=== PATIENT | female | born 1935 | race Caucasian/White ===

== ENCOUNTER 2020-02-11 16:54 | Inpatient (IN) | payer MEDICARE, OTHER, SELFPAY ==
[2020-02-11] VITALS (19 sets, daily range): BP systolic 145–194; BP diastolic 74–108; PULSE 70–97; RESP 12–20; TEMP 36.1–36.9; O2SAT 90–99; BMI 26.2
--- NOTE | ~2020-02-11 | XR_ITS ---
EXAMINATION: XR ankle RT 2V DATE: 02/11/2020 18:43 INDICATION: Postreduction right ankle fracture TECHNIQUE: Anteroposterior and lateral views of the right ankle were obtained. COMPARISON: 02/11/2020 at 5:24 PM FINDINGS: Again seen is a trimalleolar fracture at the right ankle. The degree of lateral displacement and angu lation of the medial and lateral malleolar fragments as well as intervening talar dome with respect t o the more proximal tibia and fibula have decreased but remains significant. Minimal change in drapery maker ior displacement and angulation of the small posterior malleolar fragment. Normal alignment and relat ively preserved joint space within the right foot. No other fractures identified. Fiberglas splinting or casting material is present. IMPRESSION: 1. Right ankle trimalleolar fracture with improved but still significant lateral displacement and ang ulation of the talus and medial and lateral malleolar fragments post closed reduction and splinting v ersus casting. Reviewed, dictated and finalized at location H. ER HELPER IMPRESSION: 1. Right ankle trimalleolar fracture with improved but still significant latera l displacement and angulation of the talus and medial and lateral malleolar fra gments post closed reduction and splinting versus casting.
--- NOTE | ~2020-02-11 | XR_ITS ---
EXAMINATION: XR chest 1V portable DATE: 02/12/2020 06:29 INDICATION: Hypertension. Preop. TECHNIQUE: A single frontal view of the chest was obtained. COMPARISON: Chest 2 views 08/25/2018 FINDINGS: There is mild scarring in right midlung zone. No pleural effusion or pneumothorax. The hear t size is normal. There is a left chest wall pacer with leads in the right atrium and right ventricle . Surgical clips in the right upper quadrant are likely from cholecystectomy. There are changes of ve rtebroplasty in lumbar spine. IMPRESSION: 1. Mild scarring in right midlung zone. Reviewed, dictated and finalized at location A. NICAL SPECIALIST CYTOGENETICS
--- NOTE | ~2020-02-11 | XR_ITS ---
EXAMINATION: XR surgery orthopedic EXAM DATE: 02/12/2020 12:09 INDICATION: Right ankle closed reduction. TECHNIQUE: Fluoroscopy used during XR surgery orthopedic performed by Dr. Dedrick Zhou MD. The DAP for this procedure was 0.12 mGym2. FINDINGS: Previously seen right ankle fracture dislocation has been reduced on these frontal and lat eral images. Correlate with procedure note. IMPRESSION: Fluoroscopy used during XR surgery orthopedic. Reviewed, dictated and finalized at location A. DEVELOPER OPERATOR
--- NOTE | ~2020-02-11 | CT_ITS ---
EXAMINATION: CT ankle RT wo con DATE: 02/11/2020 20:39 INDICATION: Right ankle fracture. Osteopenia. TECHNIQUE: High resolution computed tomography (CT) of the right ankle was performed without intraven ous contrast. Additional sagittal and coronal reconstructions were performed. Automated exposure cont rol and iterative reconstruction technique were employed. The dose-length product was 536.28 mGy-cm. COMPARISON: Radiographs dated 02/11/2020 FINDINGS: Comminuted fractures of the distal right tibia and fibula. The fibular fracture is comprised of a dom inant oblique fracture plane which exits the medial cortex at the level of the tibiotalar joint line. The dominant lateral malleolar fracture fragment is displaced approximately 12 mm laterally and with 15 degrees lateral angulation. Smaller nodule posterior displacement, anterior angulation and approx imately 1 cm proximal migration. There is mild comminution along the fracture plane. There is a dominant transverse fracture plane across the medial malleolus level of the tibial plafond and with similar 12 mm of medial displacement. There is more significant comminution along the fract ure plane with multiple small fracture fragments. Finally there is an oblique coronally oriented fracture plane crosses the posterolateral corner of th e distal tibia. This fragment is displaced proximally a millimeter laterally with 1 cm proximal migra tion and posterior angulation of the main fragment. There is mild comminution along the inferolateral margin of the fracture a couple small bone fragments situated along the fracture gap at the articula r surface. The talar dome remains situated in relatively normal alignment between the main medial and lateral ma lleolar fragments similarly subluxed laterally with respect to the tibial plafond. 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 No other fractures identified. 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 Small Achilles and plantar calcaneal spurs. IMPRESSION: 1. Trimalleolar fracture of the right ankle with comminution along the fracture plane most severe at the medial malleolus. 2. Persistent approximately 12 mm lateral displacement of the talar dome and associated medial malleo lar fragments with some additional secondary angulation and proximal migration of some of the fragmen ts as detailed above. 3. 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 Reviewed, dictated and finalized at location H. ERETTE IMPRESSION: 1. Trimalleolar fracture of the right ankle with comminution along the fracture plane most severe at the medial malleolus. 2. Persistent approximately 12 mm lateral displacement of the talar dome and as sociated medial malleolar fragments with some additional secondary angulation a nd proximal migration of some of the fragments as detailed above. 3. 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
--- NOTE | ~2020-02-11 | XR_ITS ---
XR ankle RT 2V DATE: 02/11/2020 17:27 INDICATION: Fall. Pain and deformity of right TECHNIQUE: 3 views COMPARISON: None FINDINGS: There are laterally displaced fractures of the medial and lateral malleolar, with associate d lateral dislocation at the tibiotalar joint. Mild plantar calcaneal enthesopathy. Osteopenia IMPRESSION: Lateral dislocation with bimalleolar ankle fracture Reviewed, dictated and finalized at location B. H STRAIGHTENER
[2020-02-11] MEDS: SODIUM CHLORIDE 0.9% IV 1,000 ML 150 ML IV CONT (18:39)
[2020-02-11] MEDS: fentaNYL CITRATE INJ (*CRX) 100 MCG/2 ML VIAL 25 MCG IV PUSH (18:42)
[2020-02-11] MEDS: fentaNYL CITRATE INJ (*CRX) 100 MCG/2 ML VIAL (18:43)
--- NOTE | 2020-02-11 20:04 | ED.LOWEXIN ---
HPI - Extremity Injury (Lower) General Chief Complaint: Extremity Injury, Lower Stated Complaint: FALL R ANKLE DEFORMITY Time Seen by Provider: 02/11/20 17:03 Source: patient Mode of arrival: EMS Limitations: no limitations History of Present Illness HPI Narrative: 84-year-old female History of A. fib and high cholesterol Lives the [facility] with her She was bringing him a soft drink when she tripped and injured her right ankle No loss of consciousness did not hit her head does not have any neurologic symptoms just has a deformity of the ankle No numbness and no laceration complaint: ankle injury Type of Injury: eversion Associated symptoms: snap/pop sensation and swelling Related Data Home Medications Medication Instructions Recorded Confirmed Xarelto 15 mg PO QPM 02/25/19 10/15/19 budesonide 3 mg 3 mg PO DAILY 08/23/19 10/15/19 capsule,delayed,extended release magnesium 30 mg tablet 20 mg PO DAILY tablet 10/25/19 rivaroxaban 15 mg tablet 15 mg PO QPM 10/25/19 Allergies Allergy/AdvReac Type Severity Reaction Status Date / Time iodine Allergy Mild RASH Verified 02/11/20 17:05 alendronate sodium Allergy Unknown Rash Verified 02/11/20 17:05 celecoxib Allergy Unknown Unknown Verified 02/11/20 17:05 hydrocodone AdvReac Unknown nausea & Verified 02/11/20 17:05 vomiting Review of Systems Constitutional: Constitutional: Reports no additional constitutional complaints, Denies chills and Denies fever(s) Cardiovascular: Cardiovascular: Denies chest pain Respiratory: Respiratory: Denies cough and Denies dyspnea Gastrointestinal: Gastrointestinal: Denies diarrhea and Denies vomiting Musculoskeletal: Musculoskeletal: Denies back pain, Reports arthralgias and Reports joint swelling Neurologic: Denies confusion, Denies syncope, Denies headache(s), Denies focal weakness and Denies weakness [facility] Past Medical History Medical History (Updated 02/11/20 @ 20:15 by Sarabjit Muhammad MD) Atrial fibrillation Collagenous colitis Diarrhea GERD (gastroesophageal reflux disease) Hearing loss History of kidney stones Hyperlipidemia Hypertension Hypothyroidism Pacemaker (2013) Paroxysmal atrial fibrillation Weight loss Surgical History Surgical History History of back surgery (2016) Vertebroplasty in 2016. History of bunionectomy History of cholecystectomy History of hysterectomy Family History Family History Mother Diabetes mellitus Father Cerebrovascular accident Family history of coronary artery disease Social History Social History (Updated 12/18/19 @ 13:55 by Kassidy Parmar [facility]) Social History: The patient is to her 2nd of 23 years. They live in [place], spent the last 15 years in [place], [place]. Originally the patient is from [facility]. She denies alcohol, tobacco, and drug abuse. She designates her Randall and her son-in-law Wing as her surrogate decision makers and she wishes to be a full code. Smoking status: Never smoker Gender identity (if verbalized by the patient): Female Spiritual care concerns: No Exam Const: General: healthy appearing and alert Orientation/consciousness: patient oriented x3 HENMT: Head: normal to inspection, no contusions and no hematomas Mouth: Yes moist mucous membranes Eyes: Conjunctivae: conjunctivae normal EOM: EOMs intact bilaterally Neck: Neck: full ROM and nontender Resp: Effort & Inspection: normal respiratory effort Skin: General skin exam: normal color Neuro: General: patient oriented x3, moves all extremities and no focal motor deficits Speech: normal speech Extrem: Other: obvious fx/dislocation of R ankle Skin intact Nl pulses, nl sensation Psych: Affect: normal affect Course Vital Signs Vital signs: Vital Signs Temperature 36.9 C 01/26
[2020-02-11] MEDS: fentaNYL CITRATE INJ (*CRX) 100 MCG/2 ML VIAL 50 MCG IV PUSH (20:58)
--- NOTE | 2020-02-11 22:00 | PM.IMHP ---
H&P: HPI History of Present Illness Date/Time: 02/11/20 22:00 Chief complaint: Right ankle injury. Narrative: Anila Romo is an 84-year-old female with a medical history significant for paroxysmal atrial fibrillation on long-term anticoagulation, hypertension, hyperlipidemia, hypothyroidism, and lymphocytic colitis who presented to the emergency department earlier today via EMS for evaluation of a right ankle injury. Not long prior to arrival she was walking across the living room to bring her a soft drink when she rolled her foot skidded on the carpet, causing her right ankle to roll, and her to fall down. She was unable to get herself up due to immediate severe and throbbing pain in her right ankle. On arrival to the emergency department she was noted to have a right ankle deformity and was found to have a displaced right ankle trimalleolar fracture which has subsequently been reduced and splinted. At the time my evaluation she complains of pretty significant pain despite receiving fentanyl. Prior to reduction, she had some tingling in her toes but that has since improved. There was no head trauma or loss of consciousness in the fall, and she reports that it was strictly a mechanical fall. She denies lightheadedness, dizziness, vertigo, chest pain, pleuritic pain, palpitations, and shortness of breath. Review of Systems Review of Systems: Narrative: Twelve systems were reviewed with pertinent positives and negatives as per HPI. No fever, chills, or sweats. No recent cold or flu symptoms. She denies cough and shortness of breath. No nausea or vomiting. No significant diarrhea. She remains on budesonide after being diagnosed with lymphocytic colitis earlier this year. She denies dysuria. Except as documented, all other systems were reviewed and are negative. [facility] Past Medical History Medical History (Updated 02/11/20 @ 22:54 by Randi Louise PA-C) Anxiety Current use of senior care anticoagulation Rivaroxaban for stroke prophylaxis due to AFib. Gastroesophageal reflux disease Hearing loss History of kidney stones Hyperlipidemia Hypertension Hypothyroidism Lymphocytic colitis Patient of Dr. Aguiar. She is on budesonide q. HS. Paroxysmal atrial fibrillation Surgical History Surgical History (Updated 02/11/20 @ 21:56 by Randi Louise PA-C) History of bunionectomy History of cardiac pacemaker in situ History of cataract extraction History of cholecystectomy History of hysterectomy History of vertebroplasty (~2016) Family History Family History Mother Diabetes mellitus Father Cerebrovascular accident Family history of coronary artery disease Social History Social History (Updated 02/11/20 @ 21:58 by Randi Louise PA-C) Social History: The patient is to her 2nd of 27 years. They live in [place] but spent the last 15 years in [place], [place]. She is originally from [facility]. She denies alcohol, tobacco, and drug abuse. She designates her Randall and her son-in-law Wing as her surrogate decision makers and she wishes to be a full code. Smoking packs per day: 0.25 Smoking cigarettes per day: 5.0 Smoking status: Former smoker Tobacco type: cigarettes Alcohol intake: never Substance use: never Gender identity (if verbalized by the patient): Female Spiritual care concerns: No Meds Home Medications and Allergies Home Medications Medication Instructions Recorded Confirmed Type Xarelto 15 mg PO QPM 02/25/19 02/11/20 History esomeprazole magnesium 20 mg 20 mg PO DAILY #90 cap 08/13/19 02/11/20 Rx capsule,delayed release budesonide 3 mg 3 mg PO HS 08/23/19 02/11/20 History capsule,delayed,extended release ezetimibe 10 mg tablet 10 mg PO HS #90 tablet 10/03/19 02/11/20 Rx levothyroxine 88 mcg tablet 88 mcg PO DAILY #90 tablet 10/03/19 02/11/20 Wei
[2020-02-11] MEDS: LACTATED RINGERS 1,000 ML 6 ML IV CONT (22:41)
[2020-02-11] MEDS: MORPHINE SULFATE (*CRX) 2 MG/ML INJ IV PUSH (23:26)
[2020-02-11] MEDS: SERTRALINE HCL 50 MG TABLET PO (23:41)
[2020-02-11] MEDS: SIMVASTATIN 20 MG TABLET PO (23:41)
[2020-02-11] MEDS: BUDESONIDE 3 MG CAP.SR.24H PO (23:42)
[2020-02-11] MEDS: SOTALOL HCL 40 MG TABLET PO (23:42)
[2020-02-11] MEDS: EZETIMIBE 10 MG TABLET PO (23:42)
[2020-02-12] VITALS (18 sets, daily range): BP systolic 112–164; BP diastolic 44–84; PULSE 70–78; RESP 12–20; TEMP 35.9–36.8; O2SAT 94–100
--- NOTE | 2020-02-12 | ECG_ITS ---
Measurements Intervals [place] Rate: 70 P: 144 TX: 224 QRS: -33 QRSD: 141 T: 69 QT: 459 QTc: 497 Interpretive Statements ELECTRONIC ATRIAL PACEMAKER LEFT AXIS DEVIATION LEFT BUNDLE BRANCH BLOCK ABNORMAL ECG Electronically Signed On 02-12-2020 9:54:09 SKIN DIVER by Hasmukh Zavaleta D.O.
[2020-02-12] MEDS: fentaNYL CITRATE INJ (*CRX) 100 MCG/2 ML VIAL 50 MCG IV PUSH ×3 (03:57→08:43)
[2020-02-12 05:33] LABS: Hematocrit 32.8 % (37.0-47.0); Hemoglobin 10.5 g/dL (12.0-15.0); Mean Corpuscular Hemoglobin 30.9 pg (26-34); Mean Corpuscular Volume 96.5 fl (80-100); Mean Platelet Volume 9.5 fl (7.4-10.4); Platelet Count Result 180 k/mm3 (150-375); Red Cell Distribution Width 13.3 % (11.5-14.5); White Blood Count 5.8 K/mm3 (4.5-10.0)
[2020-02-12] MEDS: LEVOTHYROXINE SODIUM 88 MCG TABLET PO (05:40)
[2020-02-12 05:50] LABS: Alanine Aminotransferase 72 U/L (4-35); Albumin Level 3.5 g/dL (3.5-5.1); Alkaline Phosphatase 71 U/L (38-126); Anion Gap 5 mmol/L (8-16); Aspartate Amino Transferase 125 U/L (14-36); Bilirubin,Total 0.7 mg/dL (0.2-1.3); Blood Urea Nitrogen 15 mg/dL (7-17); Carbon Dioxide 28 mmol/L (22-30); Chloride 106 mmol/L (98-107); Estimated CRCL calculation 44 ml/min; Estimated Glomerular Filt Rate > 60; Glucose 105 mg/dL (65-105); INR 1.2; Prothrombin Time 15.6 Seconds (11.1-14.7); Sodium 139 mmol/L (137-145)
[2020-02-12 05:51] LABS: Partial Thromboplastin Time 27.6 SECONDS (22.3-36.8)
--- NOTE | 2020-02-12 08:48 | PM.CNOR ---
Assessment and Plan Assessment and plan (1) Displaced trimalleolar fracture of right ankle: Qualifiers: Encounter type: initial encounter Fracture type: closed Qualified Code(s): S82.851A - Displaced trimalleolar fracture of right lower leg, initial encounter for closed fracture Code(s): S82.851A - Displaced trimalleolar fracture of right lower leg, initial encounter for closed fracture Status: Acute Assessment and Plan: History, exam, radiographs reviewed with the patient. Both pre and post reduction films reviewed. Post reduction films of the right ankle reveal a right ankle trimalleolar fracture with improved but still significant lateral displacement and angulation of the talus and medial and lateral malleolar fragments. the patient is currently on Xarelto. Her last dose of Xarelto was given on February 09 in the evening. The patient has been NPO since admission to the hospital. After review of radiographs of my attending physician, Dr. Zhou, recommended closed reduction of the right ankle with possible ORIF pending skin assessment/soft tissue swelling. Risks of surgery including but not limited to neurovascular damage, wound complications, blood clot, pulmonary embolus, stroke, myocardial infarction, anesthetic risks up to and including were reviewed. Continued pain and possible dysfunction were explained. No guarantees were offered. The patient understands and wishes to proceed. Plan: Closed reduction of right ankle fracture with possible ORIF by Dr. Zhou. Obtain consent. Remain NPO in the interim. Continue pain control. Ice. Elevate the RLE. Hold Xarelto until further notice. History of Present Illness HPI Consult date: 02/12/20 Requesting physician: Sarabjit Muhammad MD Consult reason: fracture (Right Ankle Fracture ) Chief complaint: Right ankle injury. Narrative: 84-year-old female admitted to [facility] yesterday status post right ankle fracture. History, exam and radiographs reviewed with the patient today. She reports having a fall after walking the halls at [facility] were she lives with her . Her is 89. Her then asked her for a soda and as she went to hand have the soda her shoes must have got stuck on the carpet causing her to fall to the ground. She denies hitting her head. She denies loss of consciousness. She denies syncopal event prior to fall. Fall appears to be mechanical in nature. Radiographs of the right ankle upon admission to the emergency revealed a lateral dislocation with bimalleolar ankle fracture. Reduction of ankle fracture attempted by emergency room physician. Post reduction films reveal a right ankle trimalleolar fracture with improved but still significant lateral displacement and angulation of the talus and medial and lateral malleolar fragments. the patient was splinted and then admitted to the hospital for likely surgical intervention. Orthopedic consult requested by emergency room physician. Review of Systems Constitutional: Constitutional: Reports no additional constitutional complaints, Denies chills, Denies fatigue, Denies fever(s), Denies headache(s) and Denies weakness Eyes: Eyes: Denies change in vision ENT: Reports Normal hearing present and Denies headache(s) Cardiovascular: Cardiovascular: Denies chest pain and Denies dyspnea Respiratory: Respiratory: Denies cough, Denies dyspnea and Denies wheezing Gastrointestinal: Gastrointestinal: Denies constipation, Denies diarrhea, Denies nausea and Denies vomiting Genitourinary: Genitourinary: Denies hematuria, Denies dysuria and Denies urinary urgency Musculoskeletal: Musculoskeletal: Reports as per HPI, Denies numbness and Denies tingling Integumentary/Breasts: Skin/Breast: Reports as per HPI Neurologic: Reports as per HPI, Reports Normal hearing present, Denies headache(s), Denies numbness, Denies tingling and Denies weakness Psychiatric: Psychiatric:
[2020-02-12] MEDS: SOTALOL HCL 40 MG TABLET PO ×2 (09:00→20:21)
--- NOTE | 2020-02-12 10:25 | PC.NURSE ---
pt to surgery via bed, report faxed to OR and spoke with ASHLEY Childers
--- NOTE | 2020-02-12 10:26 | PCPTNOTE ---
Attempted PT evaluation this AM. Pt currently in surgery. Will attempt evaluation after surgery once weight bearing status indicated.
[2020-02-12] MEDS: LACTATED RINGERS 1,000 ML 30 ML IV CONT (10:40)
--- NOTE | 2020-02-12 10:50 | WPDANESEPPF ---
Anes - Initial Pre Proc Eval Procedure: Operation Date: 02/12/20 10:15 Proposed Procedures p Closed Reduction, Possible Open Reduction Internal Fixation Right Ankle - Dedrick Zhou MD Date/Time: 02/12/20 10:50 Surgeon: Chikis Blank MD Pre Op Diagnosis: Right ankle injury. Patient Data Age: 84 Gender: F Height: 1.63 m Weight: 69.2 kg Last Vital Signs Temp 36.1 C L 02/11/20 21:40 Pulse 71 02/12/20 09:04 Resp 18 02/12/20 09:04 BP 122/72 02/12/20 09:04 Pulse Ox 98 02/12/20 09:04 Allergies Allergy/AdvReac Type Severity Reaction Status Date / Time iodine Allergy Mild RASH Verified 02/11/20 17:05 alendronate sodium Allergy Unknown Rash Verified 02/11/20 17:05 celecoxib Allergy Unknown Unknown Verified 02/11/20 17:05 hydrocodone AdvReac Unknown nausea & Verified 02/11/20 17:05 vomiting Home Medications Medication Instructions Recorded Confirmed Type Xarelto 15 mg PO QPM 02/25/19 02/11/20 History esomeprazole magnesium 20 mg 20 mg PO DAILY #90 cap 08/13/19 02/11/20 Rx capsule,delayed release budesonide 3 mg 3 mg PO HS 08/23/19 02/11/20 History capsule,delayed,extended release ezetimibe 10 mg tablet 10 mg PO HS #90 tablet 10/03/19 02/11/20 Rx levothyroxine 88 mcg tablet 88 mcg PO DAILY #90 tablet 10/03/19 02/11/20 Rx magnesium 30 mg tablet 20 mg PO DAILY tablet 10/25/19 02/11/20 History Lacto.acidophilus-Bif.animalis 1 cap PO DAILY 02/11/20 02/11/20 History [Daily Probiotic] cetirizine 10 mg PO DAILY 02/11/20 02/11/20 History cholecalciferol (vitamin D3) 3,000 unit PO DAILY 02/11/20 02/11/20 History cranberry extract [cranberry] 250 mg PO DAILY 02/11/20 02/11/20 History melatonin 5 mg PO HS PRN 02/11/20 02/11/20 History sertraline [Zoloft] 50 mg PO HS 02/11/20 02/11/20 History simvastatin [Zocor] 20 mg PO HS 02/11/20 02/11/20 History sotalol 40 mg PO Q12H 02/11/20 02/11/20 History Laboratory Tests 02/12/20 02/12/20 02/12/20 04:57 04:57 04:57 WBC 5.8 K/mm3 K/mm3 (4.5-10.0) RBC 3.40 M/mm3 L M/mm3 (4.2-5.4) Hgb 10.5 g/dL L g/dL (12.0-15.0) Hct 32.8 % L % (37.0-47.0) MCV 96.5 fl fl (80-100) MCH 30.9 pg pg (26-34) MCHC 32.0 g/dl g/dl (32-36) RDW 13.3 % % (11.5-14.5) Plt Count 180 k/mm3 k/mm3 (150-375) MPV 9.5 fl fl (7.4-10.4) PT 15.6 Seconds H Seconds (11.1-14.7) INR 1.2 APTT 27.6 SECONDS SECONDS (22.3-36.8) Sodium 139 mmol/L mmol/L (137-145) Potassium 4.0 mmol/L mmol/L (3.4-5.0) Chloride 106 mmol/L mmol/L (98-107) Carbon Dioxide 28 mmol/L mmol/L (22-30) Anion Gap 5 mmol/L L mmol/L (8-16) BUN 15 mg/dL D mg/dL (7-17) Creatinine 0.70 mg/dL mg/dL (0.7-1.0) Estim Creat Clear Calc 44 ml/min ml/min Estimated GFR > 60 (59 - ) Glucose 105 mg/dL mg/dL (65-105) Calcium 9.0 mg/dL mg/dL (8.4-10.2) Magnesium 2.0 mg/dL mg/dL (1.6-2.3) Total Bilirubin 0.7 mg/dL mg/dL (0.2-1.3) AST 125 U/L H U/L (14-36) ALT 72 U/L H U/L (4-35) Alkaline Phosphatase 71 U/L U/L (38-126) Total Protein 7.0 g/dL g/dL (6.3-8.2) Albumin 3.5 g/dL g/dL (3.5-5.1) TSH (Reflex) 02/12/20 04:57 WBC RBC Hgb Hct MCV MCH MCHC RDW Plt Count MPV PT INR APTT Sodium Potassium Chloride Carbon Dioxide Anion Gap BUN Creatinine Estim Creat Clear Calc Estimated GFR Glucose Calcium Magnesium Total Bilirubin AST ALT Alkaline Phosphatase Total Protein Albumin TSH (Reflex) 1.780 uIU/mL uIU/mL (0.465-4.68) Patient hx anesthesia problems:
--- NOTE | 2020-02-12 11:17 | WPDHPUPDATE1 ---
History and Physical Update Update Date/Time: 02/12/20 11:17 History and Physical has been reviewed, including an updated exam of the patient. There are NO changes in the patient's condition. Risks, benefits, and alternatives have been discussed and questions answered. Patient agrees to proceed with procedure.
--- NOTE | 2020-02-12 12:16 | PM.IMPN ---
Progress Note: A&P Assessment and Plan (1) Displaced trimalleolar fracture of right ankle: Qualifiers: Encounter type: initial encounter Fracture type: closed Qualified Code(s): S82.851A - Displaced trimalleolar fracture of right lower leg, initial encounter for closed fracture Code(s): S82.851A - Displaced trimalleolar fracture of right lower leg, initial encounter for closed fracture Status: Acute Assessment and Plan: Pt going to OR today for ankle fracture repair (2) Hypertension: Code(s): I10 - Essential (primary) hypertension Status: Acute Assessment and Plan: Continue to watch in hospital, Bp is 164/65. Slightly high pt is on fluids continue to watch. Pt is medical stable for surgery today. (3) Paroxysmal atrial fibrillation: Code(s): I48.0 - Paroxysmal atrial fibrillation Status: Acute Assessment and Plan: On sotalol (4) Current use of fpc anticoagulation: Code(s): Z79.01 - shelter (current) use of anticoagulants Status: Acute Assessment and Plan: Xarelto on hold (5) Hypothyroidism: Code(s): E03.9 - Hypothyroidism, unspecified Status: Acute Assessment and Plan: On levothyroxine (6) Gastroesophageal reflux disease: Code(s): K21.9 - Gastro-esophageal reflux disease without esophagitis Status: Inactive Assessment and Plan: On omeprazole Subjective Date/time seen: 02/12/20 12:16 Interval history: Clarissa is an 84-year-old female with a medical history significant for paroxysmal atrial fibrillation on long-term anticoagulation, hypertension, hyperlipidemia, hypothyroidism, and lymphocytic colitis who presented to the emergency department earlier today via EMS for evaluation of a right ankle injury. Pt fell onto floor accidental fell on carpet, pt sustained displaced trimalleolar fracture of right lower leg. Pt is going to OR today under DR Zhou. Review of Systems Review of Systems: All systems reviewed & are unremarkable except as noted in HPI and below Exam Narrative: Exam Narrative: General: Well-developed elderly female Respiratory: Lungs are clear to auscultation bilaterally. Cardiovascular: Regular rate and rhythm with S1-S2. Gastrointestinal: Abdomen is soft, nontender, and nondistended with positive bowel sounds. Skin: Warm and dry. . Extremities: No cyanosis, clubbing, or edema. Musculoskeletal: Right lower leg is in a splint. pulses are present sensation intact in R ankle and foot Neurological: Alert. No gross focal deficits to casual conversation. Psychiatric: Normal mood and affect. Objective Data Vital Signs Vital Signs: Vital Signs - 24 hr 02/11/20 16:57 02/11/20 17:12 02/11/20 17:15 Temperature 36.9 C Pulse Rate 70 70 70 Respiratory Rate 18 12 13 Blood Pressure 145/82 H Pulse Oximetry 98 98 97 02/11/20 17:16 02/11/20 17:30 02/11/20 17:31 Temperature Pulse Rate 70 70 70 Respiratory Rate 19 15 17 Blood Pressure 167/78 H 153/74 H Pulse Oximetry 96 98 97 02/11/20 17:45 02/11/20 17:46 02/11/20 18:00 Temperature Pulse Rate 70 70 70 Respiratory Rate 15 17 16 Blood Pressure 146/83 H Pulse Oximetry 99 99 98 02/11/20 18:01 02/11/20 18:09 02/11/20 18:11 Temperature Pulse Rate 70 70 70 Respiratory Rate 13 13 14 Blood Pressure 167/78 H 179/81 H 177/81 H Pulse Oximetry 97 98 97 02/11/20 18:15 02/11/20 18:16 02/11/20 18:21 Temperature Pulse Rate 70 70 83 Respiratory Rate 14 17 13 Blood Pressure 182/81 H 194/108 H Pulse Oximetry 99 98 93 02/11/20 18:43 02/11/20 19:16 02/11/20 21:40 Temperature 36.1 C L Pulse Rate 70 74 97 Respiratory Rate 20 12 20 Blood Pressure 184/90 H 190/86 H 182/75 H Pulse Oximetry 98 94 90 02/11/20 23:42 02/12/20 09:00 02/12/20 09:04 Temperature Pulse Rate 78 71 71 Respiratory Rate 18 Blood Pressure 122/72 Pulse Oximetry 98 02/12/20 10:40 Temp
--- NOTE | 2020-02-12 13:36 | PC.NURSE ---
pt returned from OR, resting comfortably, minimal pain, plan of care discussed
--- NOTE | 2020-02-12 13:59 | PM.PROC ---
Procedure Note - Detailed Date of procedure: 02/12/20 Pre-op diagnosis: Right ankle injury. RIGHT TRIMALLEOLAR ANKLE FRACTURE DISLOCATION. Post-op diagnosis: same Procedure performed: CLOSED REDUCTION, SPLINTING RIGHT ANKLE Description of procedure: THE PATIENT WAS TAKEN TO THE OPERATING ROOM AND INTUBATED UNDER ANESTHESIA. THE SPLINT WAS REMOVED FROM THE RIGHT ANKLE. LARGE HEMATOMA AND FRACTURE BLISTERING WAS OBSERVED ON THE MEDIAL SIDE OF THE ANKLE. THE LATERAL SIDE HAD HEMATOMA AND SWELLING BUT NO BLISTERING. IT WAS DETERMINED THAT ORIF WOULD NOT BE APPROPRIATE DUE TO SOFT TISSUE SWELLING AND THE RISK OF WOUND COMPLICATIONS. XEROFORM DRESSING WAS PLACED ON THE MEDIAL SIDE OF THE ANKLE. USING FLUROSCOPY, THE FRACTURE WAS REDUCED AND SECURED WITH A NELLY CORBIN SPLINT. POST REDUCTION FILMS SHOWED GOOD POSITION OF FRACTURE FRAGMENTS AND REDUCTION OF ANKLE JOINT. THE PATIENT WAS EXTUBATED AND SENT TO RECOVERY ROOM Anesthesia: GLMA Surgeon: Dedrick Zhou MD Complications: No immediate complications Condition: stable Disposition: PACU
[2020-02-12] MEDS: PANTOPRAZOLE 40 MG TABLET PO (15:39)
[2020-02-12] MEDS: HYDROcodone/acetaminophen (*CRX) 7.5-325 MG TABLET 1 TAB PO ×2 (15:39→20:19)
[2020-02-12] MEDS: LORATADINE 10 MG TABLET PO (15:40)
[2020-02-12] MEDS: CHOLECALCIFEROL 1,000 UNITS TABLET 3000 UNITS PO (15:40)
[2020-02-12] MEDS: SIMVASTATIN 20 MG TABLET PO (20:20)
[2020-02-12] MEDS: EZETIMIBE 10 MG TABLET PO (20:20)
[2020-02-12] MEDS: BUDESONIDE 3 MG CAP.SR.24H PO (20:20)
[2020-02-12] MEDS: SERTRALINE HCL 50 MG TABLET PO (20:20)
[2020-02-13] VITALS (8 sets, daily range): BP systolic 106–140; BP diastolic 54–69; PULSE 70–89; RESP 16–18; TEMP 36.1–36.8; O2SAT 93–95
[2020-02-13 05:38] LABS: Hematocrit 31.3 % (37.0-47.0); Hemoglobin 9.9 g/dL (12.0-15.0); Mean Corpuscular HGB Conc 31.6 g/dl (32-36); Mean Corpuscular Hemoglobin 31.1 pg (26-34); Mean Corpuscular Volume 98.4 fl (80-100); Mean Platelet Volume 9.5 fl (7.4-10.4); Platelet Count Result 165 k/mm3 (150-375); Red Blood Count 3.18 M/mm3 (4.2-5.4); Red Cell Distribution Width 13.4 % (11.5-14.5); White Blood Count 5.4 K/mm3 (4.5-10.0)
[2020-02-13 05:58] LABS: Anion Gap 4 mmol/L (8-16); Blood Urea Nitrogen 12 mg/dL (7-17); Calcium 9.2 mg/dL (8.4-10.2); Carbon Dioxide 32 mmol/L (22-30); Chloride 105 mmol/L (98-107); Estimated CRCL calculation 39 ml/min; Estimated Glomerular Filt Rate > 60; Glucose 110 mg/dL (65-105); Potassium 4.3 mmol/L (3.4-5.0); Sodium 141 mmol/L (137-145)
[2020-02-13] MEDS: LEVOTHYROXINE SODIUM 88 MCG TABLET PO (06:57)
--- NOTE | 2020-02-13 08:30 | WPDANESPN ---
Anes - Prog Note Post-Op Date/Time: 02/13/20 08:30 Cardiovascular status: normal Respiratory status: normal Airway patency: baseline Mental status: baseline Post-Op hydration status: normal Vital Signs: Last Vital Signs Temp 36.1 C L 02/13/20 05:50 Pulse 75 02/13/20 05:50 Resp 16 02/13/20 05:50 BP 136/69 02/13/20 05:50 Pulse Ox 93 02/13/20 05:50 Pain Score (VAS): 0 I/O: Intake & Output 02/12/20 02/13/20 02/13/20 23:59 07:59 15:59 Intake Total 450 250 Output Total 1050 700 Balance -600 -450 Laboratory Tests 02/13/20 05:16 02/13/20 05:16 02/13/20 02/13/20 02/13/20 03:58 05:16 05:16 WBC 5.4 RBC 3.18 L Hgb 9.9 L Hct 31.3 L MCV 98.4 MCH 31.1 MCHC 31.6 L RDW 13.4 Plt Count 165 MPV 9.5 Sodium 141 Potassium 4.3 Chloride 105 Carbon Dioxide 32 H Anion Gap 4 L BUN 12 Creatinine 0.80 Estim Creat Clear Calc 39 Estimated GFR > 60 Glucose 110 H Calcium 9.2 SARS-CoV-2 RNA (RT-PCR) Pending Post-procedural complaints: none Patient Feedback: Patient satisfied with anesthetic care.
[2020-02-13] MEDS: ACETAMINOPHEN 325 MG TABLET 650 MG PO (08:59)
[2020-02-13] MEDS: SOTALOL HCL 40 MG TABLET PO ×2 (09:00→20:37)
[2020-02-13] MEDS: PANTOPRAZOLE 40 MG TABLET PO (09:00)
[2020-02-13] MEDS: DOCUSATE SODIUM 100 MG CAPSULE PO ×2 (09:00→16:26)
[2020-02-13] MEDS: CHOLECALCIFEROL 1,000 UNITS TABLET 3000 UNITS PO (09:00)
[2020-02-13] MEDS: LORATADINE 10 MG TABLET PO (09:00)
[2020-02-13] MEDS: ENOXAPARIN 40 MG/0.4 ML SYRINGE SUB-Q (09:00)
[2020-02-13] MEDS: HYDROcodone/acetaminophen (*CRX) 7.5-325 MG TABLET 1 TAB PO ×3 (10:04→21:42)
--- NOTE | 2020-02-13 11:10 | PM.IMPN ---
Progress Note: A&P Assessment and Plan (1) Displaced trimalleolar fracture of right ankle: Qualifiers: Encounter type: initial encounter Fracture type: closed Qualified Code(s): S82.851A - Displaced trimalleolar fracture of right lower leg, initial encounter for closed fracture Code(s): S82.851A - Displaced trimalleolar fracture of right lower leg, initial encounter for closed fracture Status: Acute Assessment and Plan: Pt fell onto floor accidental fall on carpet, pt sustained displaced trimalleolar fracture of right lower leg. Unfortunately pt could not have surgery due to swelling/ soft tissue swelling of her right ankle. Pt will need rpt xray in one weeks time, pt is non weight bearing, cannot go back to [facility], [facility] consult made. Pt to continue with PT and pain control. RICE techniques. (2) Hypertension: Code(s): I10 - Essential (primary) hypertension Status: Acute Assessment and Plan: Continue to watch in hospital, Bp is 123/54 (3) Paroxysmal atrial fibrillation: Code(s): I48.0 - Paroxysmal atrial fibrillation Status: Acute Assessment and Plan: On sotalol (4) Current use of fdc anticoagulation: Code(s): Z79.01 - ocean transportation intermediary (current) use of anticoagulants Status: Acute Assessment and Plan: Xarelto on hold (5) Hypothyroidism: Code(s): E03.9 - Hypothyroidism, unspecified Status: Acute Assessment and Plan: On levothyroxine (6) Gastroesophageal reflux disease: Code(s): K21.9 - Gastro-esophageal reflux disease without esophagitis Status: Inactive Assessment and Plan: On omeprazole Subjective Date/time seen: 02/13/20 11:10 Interval history: Clarissa is an 84-year-old female with a medical history significant for paroxysmal atrial fibrillation on long-term anticoagulation, hypertension, hyperlipidemia, hypothyroidism, and lymphocytic colitis who presented to the emergency department earlier today via EMS for evaluation of a right ankle injury. Pt fell onto floor accidental fall on carpet, pt sustained displaced trimalleolar fracture of right lower leg. Unfortunately pt could not have surgery due to swelling/ soft tissue sweling of her right ankle. Review of Systems Review of Systems: All systems reviewed & are unremarkable except as noted in HPI and below Exam Narrative: Exam Narrative: General: Well-developed elderly female Respiratory: Lungs are clear to auscultation bilaterally. Cardiovascular: Regular rate and rhythm with S1-S2. Gastrointestinal: Abdomen is soft, nontender, and nondistended with positive bowel sounds. Skin: Warm and dry. Extremities: No cyanosis, clubbing, or edema. Musculoskeletal: Soft cast and zeynep wrap of R leg. pulses are present sensation intact in R ankle and foot Neurological: Alert. No gross focal deficits to casual conversation. Psychiatric: Normal mood and affect. Objective Data Vital Signs Vital Signs: Vital Signs - 24 hr 02/12/20 12:02 02/12/20 12:15 02/12/20 12:30 Temperature 36.8 C Pulse Rate 70 70 70 Respiratory Rate 12 12 20 Blood Pressure 139/64 153/72 H 148/84 H Pulse Oximetry 100 100 95 02/12/20 12:45 02/12/20 13:00 02/12/20 13:15 Temperature Pulse Rate 74 70 74 Respiratory Rate 12 16 14 Blood Pressure 149/71 H 149/58 H 149/58 H Pulse Oximetry 94 95 94 02/12/20 13:25 02/12/20 13:29 02/12/20 13:44 Temperature 35.9 C L 36.4 C L Pulse Rate 71 70 70 Respiratory Rate 12 16 16 Blood Pressure 155/70 H 141/71 H 141/69 H Pulse Oximetry 94 94 95 02/12/20 14:14 02/12/20 15:14 02/12/20 18:00 Temperature 36.2 C L 36.6 C 36.6 C Pulse Rate 78 75 70 Respiratory Rate 16 16 16 Blood Pressure 119/82 112/49 L 113/44 L Pulse Oximetry 94 96 94 02/12/20 20:21 02/12/20 21:27 02/12/20 23:14 Temperature 36.6 C 36.1 C L Pulse Rate 72 74 72 Respiratory Rate 16 16 Blood Pressure 125/50 L 133/55 L Pulse Oxi
--- NOTE | 2020-02-13 11:25 | PCPTNOTE ---
Attempted second therapy session. Pt refused, stating I just need some rest. I just took a pill for my pain and am feeling woozy. I just need rest and people keep coming in. Maybe later on I will feel more up to it. Informed Pt the importance of therapy, Pt agreed and stated Maybe later on. Will attempt again.
[2020-02-13 14:03] LABS: SARS-CoV-2 RNA PCR Negative
--- NOTE | 2020-02-13 14:58 | PM.PNORT ---
Progress Note: A&P Additional Plan POST OP CLOSED REDUCTION FOR DISPLACED LEFT TRIMALLEOLAR ANKLE FRACTURE WITH SIGNIFICANT SOFT TISSUE INJURY WITH BLISTERING AND HEMATOMA. SHE WILL REMAIN SPLINTED FOR AT LEAST 7 MORE DAYS AT WHICH TIME A SECOND LOOK WOULD BE PREFORMED TO LOOK AT THE TISSUE FOR DETERMINATION OF PROCEDURE. WE DISCUSSED THE RISK OF INFECTION AND SKIN DEHISCENCE IF SURGERY IS DONE TOO SOON.WILL FOLLOW Time Spent With Patient Time with patient: less than 15 minutes Subjective Subjective Date/Time Seen: 02/13/20 14:58 Post Op day: 1 Principal diagnosis: POD 1 DOING WELL. PAIN CONTROLLED Interval history: POD Exam Extrem: Other: VSS AFEBRILE LEFT LEG IN WELL MOLDED SPLINT, NV INTACT CALF SOFT Objective Data Vital Signs Vital Signs: Vital Signs - 24 hr 02/12/20 15:14 02/12/20 18:00 02/12/20 20:21 Temperature 36.6 C 36.6 C Pulse Rate 75 70 72 Respiratory Rate 16 16 Blood Pressure 112/49 L 113/44 L Pulse Oximetry 96 94 02/12/20 21:27 02/12/20 23:14 02/13/20 05:50 Temperature 36.6 C 36.1 C L 36.1 C L Pulse Rate 74 72 75 Respiratory Rate 16 16 16 Blood Pressure 125/50 L 133/55 L 136/69 Pulse Oximetry 95 94 93 02/13/20 09:00 02/13/20 10:00 02/13/20 13:08 Temperature 36.8 C 36.4 C Pulse Rate 89 72 70 Respiratory Rate 18 16 Blood Pressure 123/54 L 106/54 L Pulse Oximetry 95 94 Intake/Output Intake/Output: Intake & Output 02/10/20 02/11/20 02/12/20 02/13/20 23:59 23:59 23:59 23:59 Intake Total 1100 730 Output Total 2650 700 Balance -1550 30 Meds/Results Medications: Active Medications Generic Name Dose Route Start Last Admin Trade Name Freq PRN Reason Stop Dose Admin Acetaminophen 650 mg 02/12/20 13:29 02/13/20 08:59 Acetaminophen 325 Mg Tablet PO 650 mg Q6H PRN Administration Pain Rated 1-3 Hydrocodone Bitart/Acetaminophen 1 tab 02/12/20 13:29 02/13/20 10:04 Hydrocodone/Acetaminophen (*Crx) 7.5-325 Mg Tablet PO 1 tab Q3H PRN Administration Pain Rated 4-6 Budesonide 3 mg 02/11/20 23:00 02/12/20 20:20 Budesonide 3 Mg Cap.Sr.24h PO 3 mg HS ISHMAEL Administration Diazepam 5 mg 02/12/20 13:29 Diazepam (*Crx) 5 Mg Tablet PO Q8H PRN Muscle Spasm Docusate Sodium 100 mg 02/12/20 17:00 02/13/20 09:00 Docusate Sodium 100 Mg Capsule PO 100 mg BID ISHMAEL Administration Ezetimibe 10 mg 02/11/20 23:05 02/12/20 20:20 Ezetimibe 10 Mg Tablet PO 10 mg HS [facility] Administration Enoxaparin Sodium 40 mg 02/13/20 09:00 02/13/20 09:00 Enoxaparin 40 Mg/0.4 Ml Syringe SUB-Q 40 mg DAILY ISHMAEL Administration Levothyroxine Sodium 88 mcg 02/12/20 06:30 02/13/20 06:57 Levothyroxine Sodium 88 Mcg Tablet PO 88 mcg DAILY@0630 ISHMAEL Administration Loratadine 10 mg 02/12/20 09:00 02/13/20 09:00 Loratadine 10 Mg Tablet PO 10 mg QAM [facility] Administration Magnesium Hydroxide 30 ml 02/12/20 13:29 Magnesium Hydroxide Susp 30 Ml Udc PO BID PRN Constipation Melatonin 5 mg 02/11/20 22:47 Melatonin 5 Mg Tablet PO HS PRN Insomnia Morphine Sulfate 3 mg 02/12/20 13:29 Morphine Sulfate (*Crx) 4 Mg/Ml Inj IV PUSH Q3H PRN Pain Rated 7-10 Non-Formulary Medication 1 cap 02/12/20 09:00 Lacto.Acidophilus-Bif.Animalis [Daily Probiotic] PO 03/13/20 09:01 DAILY [facility] Non-Formulary Medication 20 mg 02/12/20 09:00 Magnesium PO 03/13/20 09:01 DAILY [facility] Ondansetron HCl 4 mg 02/11/20 19:57 Ondansetron Inj 4 Mg/2 Ml Vial IV PUSH Q4H PRN Nausea Pantoprazole Sodium 40 mg 02/12/20 09:00 02/13/20 09:00 Pantoprazole 40 Mg Tablet PO 40 mg QAM ISHMAEL Administration Sertraline HCl 50 mg 02/11/20 23:05 02/12/20 20:20 Sertraline Hcl 50 Mg Tablet PO 50 mg HS ISHMAEL Administration Simvastatin 20 mg 02/11/20 23:05 02/12/20 20:20 Simvastatin 20 Mg Tablet PO 20 mg HS ISHMAEL Administration Sotalol HCl 40 mg 02/11/20 22
[2020-02-13] MEDS: SIMVASTATIN 20 MG TABLET PO (20:36)
[2020-02-13] MEDS: EZETIMIBE 10 MG TABLET PO (20:37)
[2020-02-13] MEDS: SERTRALINE HCL 50 MG TABLET PO (20:37)
[2020-02-13] MEDS: BUDESONIDE 3 MG CAP.SR.24H PO (20:37)
[2020-02-14] VITALS (10 sets, daily range): BP systolic 119–153; BP diastolic 48–73; PULSE 70–92; RESP 14–18; TEMP 36–36.8; O2SAT 92–98
[2020-02-14] MEDS: LEVOTHYROXINE SODIUM 88 MCG TABLET PO (05:47)
[2020-02-14] MEDS: HYDROcodone/acetaminophen (*CRX) 7.5-325 MG TABLET 1 TAB PO ×3 (09:06→20:29)
[2020-02-14] MEDS: ENOXAPARIN 40 MG/0.4 ML SYRINGE SUB-Q (09:07)
[2020-02-14] MEDS: LORATADINE 10 MG TABLET PO (09:07)
[2020-02-14] MEDS: SOTALOL HCL 40 MG TABLET PO ×2 (09:07→20:29)
[2020-02-14] MEDS: DOCUSATE SODIUM 100 MG CAPSULE PO ×2 (09:07→17:28)
[2020-02-14] MEDS: CHOLECALCIFEROL 1,000 UNITS TABLET 3000 UNITS PO (09:07)
[2020-02-14] MEDS: PANTOPRAZOLE 40 MG TABLET PO (09:07)
--- NOTE | 2020-02-14 12:20 | PM.PNORT ---
Progress Note: A&P Assessment and Plan (1) Displaced trimalleolar fracture of right ankle: Qualifiers: Encounter type: initial encounter Fracture type: closed Qualified Code(s): S82.851A - Displaced trimalleolar fracture of right lower leg, initial encounter for closed fracture Code(s): S82.851A - Displaced trimalleolar fracture of right lower leg, initial encounter for closed fracture Status: Acute Assessment and Plan: POD #2 Closed reduction, splinting of the right ankle. Continue PT/OT. NWB RLE. Continue to elevate RLE on pillows. Ice. Continue pain control. Continue splint, likely one week. Plan for a follow up as an outpatient in our office Tuesday for splint removal, skin assessment and possible plan for return to surgery for ORIF. Discussed once again the potential for infection, poor wound healing and/or skin dehiscence if surgery is performed during this acute stage of soft tissue swelling, blistering and hematoma. Dispo: SNF vs. Rehab when medically cleared. Follow up appt Tuesday with Dr. Zhou. Subjective Subjective Date/Time Seen: 02/14/20 12:20 POD #2: CLOSED REDUCTION, SPLINTING RIGHT ANKLE No new complaints. Pain well controlled. Awaiting SNF placement today. Review of Systems Review of Systems: All systems reviewed & are unremarkable except as noted in HPI and below Constitutional: Constitutional: Denies chills, Denies fatigue and Denies weakness Cardiovascular: Cardiovascular: Denies chest pain and Denies lightheadedness Respiratory: Respiratory: Denies cough, Denies dyspnea and Denies wheezing Gastrointestinal: Gastrointestinal: Reports no additional gastrointestinal complaints Musculoskeletal: Musculoskeletal: Reports arthralgias (Right Ankle ), Reports joint swelling (Right Ankle ), Denies numbness, Denies stiffness and Denies tingling Exam Const: General: comfortable and no acute distress Resp: Effort & Inspection: normal respiratory effort Cardio: Rate: regular rate Rhythm: regular rhythm GI: Inspection: non-distended GI Palp: Yes Soft to palpation and No Tenderness to palpation present (GI) Skin: Other: unable to assess skin, splint in place Neuro: Cognition (Neuro): normal cognition Extrem: Right lower extremity: ankle (Splint in place ) and foot (splint in place, moves toes, sensation intact to light touch.) Details: other (good capillary refill ) Psych: Mental Status: mental status grossly normal Thought content: Yes Normal thought content present Objective Data Vital Signs Vital Signs: Vital Signs - 24 hr 02/13/20 13:08 02/13/20 17:44 02/13/20 20:00 Temperature 36.4 C 36.4 C Pulse Rate 70 75 Respiratory Rate 16 16 Blood Pressure 106/54 L 130/58 L Pulse Oximetry 94 95 95 02/13/20 20:37 02/13/20 21:56 02/14/20 02:00 Temperature 36.7 C 36.0 C L Pulse Rate 74 76 73 Respiratory Rate 16 16 Blood Pressure 140/61 148/73 H Pulse Oximetry 94 92 02/14/20 06:00 02/14/20 09:07 02/14/20 10:12 Temperature 36.1 C L Pulse Rate 76 88 Respiratory Rate 16 Blood Pressure 153/70 H Pulse Oximetry 95 96 02/14/20 10:56 02/14/20 10:58 Temperature 36.2 C L 36.5 C Pulse Rate 92 70 Respiratory Rate 14 16 Blood Pressure 121/56 L 119/63 Pulse Oximetry 98 98 Intake/Output Intake/Output: Intake & Output 02/11/20 02/12/20 02/13/20 02/14/20 23:59 23:59 23:59 23:59 Intake Total 1100 1200 640 Output Total 2650 1000 1000 Balance -1550 200 -360 Meds/Results Medications: Active Medications Generic Name Dose Route Start Last Admin Trade Name Freq PRN Reason Stop Dose Admin Acetaminophen 650 mg 02/12/20 13:29 02/13/20 08:59 Acetaminophen 325 Mg Tablet PO 650 mg Q6H PRN Administration Pain Rated 1-3 Hydrocodone Bitart/Acetaminophen 1 tab 02/12/20 13:29 02/14/20 09:06 Hydrocodone/Acetaminophen (*Crx) 7.5-325 Mg Tablet PO 1 tab Q3H PRN Administration Pain Rated 4-6 Budesonide
--- NOTE | 2020-02-14 13:56 | PM.IMPN ---
Progress Note: A&P Assessment and Plan (1) Displaced trimalleolar fracture of right ankle: Qualifiers: Encounter type: initial encounter Fracture type: closed Qualified Code(s): S82.851A - Displaced trimalleolar fracture of right lower leg, initial encounter for closed fracture Code(s): S82.851A - Displaced trimalleolar fracture of right lower leg, initial encounter for closed fracture Status: Acute Assessment and Plan: Pt fell onto floor accidental fall on carpet, pt sustained displaced trimalleolar fracture of right lower leg. Unfortunately pt could not have surgery due to swelling/ soft tissue swelling of her right ankle. Pt will need rpt xray in one weeks time, pt is for a splint to day. DC to [facility] tomorrow. Continue PT here. (2) Hypertension: Code(s): I10 - Essential (primary) hypertension Status: Acute Assessment and Plan: Continue to watch in hospital, Bp is 119/63 (3) Paroxysmal atrial fibrillation: Code(s): I48.0 - Paroxysmal atrial fibrillation Status: Acute Assessment and Plan: On sotalol (4) Current use of watermaster anticoagulation: Code(s): Z79.01 - residential (current) use of anticoagulants Status: Acute Assessment and Plan: Xarelto on hold (5) Hypothyroidism: Code(s): E03.9 - Hypothyroidism, unspecified Status: Acute Assessment and Plan: On levothyroxine (6) Gastroesophageal reflux disease: Code(s): K21.9 - Gastro-esophageal reflux disease without esophagitis Status: Inactive Assessment and Plan: On omeprazole Subjective Date/time seen: 02/14/20 13:56 Interval history: Clarissa is an 84-year-old female with a medical history significant for paroxysmal atrial fibrillation on long-term anticoagulation, hypertension, hyperlipidemia, hypothyroidism, and lymphocytic colitis who presented to the emergency department earlier today via EMS for evaluation of a right ankle injury. Pt fell onto floor accidental fall on carpet, pt sustained displaced trimalleolar fracture of right lower leg. Unfortunately pt could not have surgery due to swelling/ soft tissue sweling of her right ankle. Pt is having PT in the hospital. Pt to be discharged tomorrow to [facility]. Review of Systems Review of Systems: All systems reviewed & are unremarkable except as noted in HPI and below Exam Narrative: Exam Narrative: General: Well-developed elderly female Respiratory: Lungs are clear to auscultation bilaterally. Cardiovascular: Regular rate and rhythm with S1-S2. Gastrointestinal: Abdomen is soft, nontender, and nondistended with positive bowel sounds. Skin: Warm and dry. Extremities: No cyanosis, clubbing, or edema. Musculoskeletal: Soft cast and zeynep wrap of R leg. sensation intact in R ankle and foot Neurological: Alert. No gross focal deficits to casual conversation. Psychiatric: Normal mood and affect. Objective Data Vital Signs Vital Signs: Vital Signs - 24 hr 02/13/20 17:44 02/13/20 20:00 02/13/20 20:37 Temperature 36.4 C Pulse Rate 75 74 Respiratory Rate 16 Blood Pressure 130/58 L Pulse Oximetry 95 95 02/13/20 21:56 02/14/20 02:00 02/14/20 06:00 Temperature 36.7 C 36.0 C L 36.1 C L Pulse Rate 76 73 76 Respiratory Rate 16 16 16 Blood Pressure 140/61 148/73 H 153/70 H Pulse Oximetry 94 92 95 02/14/20 09:07 02/14/20 10:12 02/14/20 10:56 Temperature 36.2 C L Pulse Rate 88 92 Respiratory Rate 14 Blood Pressure 121/56 L Pulse Oximetry 96 98 02/14/20 10:58 Temperature 36.5 C Pulse Rate 70 Respiratory Rate 16 Blood Pressure 119/63 Pulse Oximetry 98 Intake/Output Intake/Output: Intake & Output 02/11/20 02/12/20 02/13/20 02/14/20 23:59 23:59 23:59 23:59 Intake Total 1100 1200 760 Output Total 2650 1000 1000 Balance -1550 200 -240 Meds/Results Medications: Active Medications Generic Name Dose Route Start Last Adm
[2020-02-14] MEDS: MAGNESIUM HYDROXIDE SUSP 30 ML UDC PO (17:30)
[2020-02-14] MEDS: BUDESONIDE 3 MG CAP.SR.24H PO (20:29)
[2020-02-14] MEDS: EZETIMIBE 10 MG TABLET PO (20:29)
[2020-02-14] MEDS: SERTRALINE HCL 50 MG TABLET PO (20:29)
[2020-02-14] MEDS: SIMVASTATIN 20 MG TABLET PO (20:29)
[2020-02-15 02:00] VITALS: BP 136/73; PULSE 76; RESP 16; TEMP 36.6; O2SAT 96
[2020-02-15 05:24] LABS: Hematocrit 30.4 % (37.0-47.0); Hemoglobin 9.7 g/dL (12.0-15.0); Mean Corpuscular HGB Conc 31.9 g/dl (32-36); Mean Corpuscular Volume 97.1 fl (80-100); Mean Platelet Volume 9.4 fl (7.4-10.4); Platelet Count Result 176 k/mm3 (150-375); Red Blood Count 3.13 M/mm3 (4.2-5.4); Red Cell Distribution Width 13.7 % (11.5-14.5); White Blood Count 5.7 K/mm3 (4.5-10.0)
[2020-02-15 05:34] LABS: Anion Gap 3 mmol/L (8-16); Blood Urea Nitrogen 15 mg/dL (7-17); Carbon Dioxide 37 mmol/L (22-30); Chloride 102 mmol/L (98-107); Estimated CRCL calculation 35 ml/min; Estimated Glomerular Filt Rate 60; Glucose 119 mg/dL (65-105); Potassium 4.2 mmol/L (3.4-5.0); Sodium 142 mmol/L (137-145)
[2020-02-15 05:50] VITALS: BP 141/65; PULSE 70; RESP 16; TEMP 36.1; O2SAT 96
[2020-02-15] MEDS: LEVOTHYROXINE SODIUM 88 MCG TABLET PO (06:34)
[2020-02-15 08:54] LABS: Hematocrit 32.6 % (37.0-47.0); Hemoglobin 10.4 g/dL (12.0-15.0); Mean Corpuscular HGB Conc 31.9 g/dl (32-36); Mean Corpuscular Hemoglobin 31.2 pg (26-34); Mean Corpuscular Volume 97.9 fl (80-100); Mean Platelet Volume 9.6 fl (7.4-10.4); Platelet Count Result 190 k/mm3 (150-375); Red Blood Count 3.33 M/mm3 (4.2-5.4); Red Cell Distribution Width 13.6 % (11.5-14.5); White Blood Count 5.8 K/mm3 (4.5-10.0)
[2020-02-15] MEDS: HYDROcodone/acetaminophen (*CRX) 7.5-325 MG TABLET 1 TAB PO (09:19)
[2020-02-15 09:20] VITALS: PULSE 60
[2020-02-15] MEDS: ENOXAPARIN 40 MG/0.4 ML SYRINGE SUB-Q (09:20)
[2020-02-15] MEDS: DOCUSATE SODIUM 100 MG CAPSULE PO (09:20)
[2020-02-15] MEDS: PANTOPRAZOLE 40 MG TABLET PO (09:20)
[2020-02-15] MEDS: LORATADINE 10 MG TABLET PO (09:20)
[2020-02-15] MEDS: SOTALOL HCL 40 MG TABLET PO (09:20)
[2020-02-15] MEDS: CHOLECALCIFEROL 1,000 UNITS TABLET 3000 UNITS PO (09:20)
--- NOTE | 2020-02-15 09:55 | PM.PNORT ---
Progress Note: A&P Assessment and Plan (1) Displaced trimalleolar fracture of right ankle: Qualifiers: Encounter type: initial encounter Fracture type: closed Qualified Code(s): S82.851A - Displaced trimalleolar fracture of right lower leg, initial encounter for closed fracture Code(s): S82.851A - Displaced trimalleolar fracture of right lower leg, initial encounter for closed fracture Status: Acute Assessment and Plan: POD #3: Closed reduction, splinting of the right ankle. Continue PT/OT. NWB RLE. Continue to elevate RLE on pillows. Ice. Continue pain control. Continue splint, likely one week. Plan for a follow up as an outpatient in our office Tuesday for splint removal, skin assessment and possible plan for return to surgery for ORIF. Discussed once again the potential for infection, poor wound healing and/or skin dehiscence if surgery is performed during this acute stage of soft tissue swelling, blistering and hematoma. Dispo: SNF when medically cleared. Follow up appt Tuesday with Dr. Zhou. Subjective Subjective Date/Time Seen: 02/15/20 09:55 POD #3: CLOSED REDUCTION, SPLINTING RIGHT ANKLE No new complaints. Pain well controlled. Awaiting SNF placement today. Review of Systems Review of Systems: All systems reviewed & are unremarkable except as noted in HPI and below Constitutional: Constitutional: Denies chills, Denies fatigue and Denies weakness Cardiovascular: Cardiovascular: Denies chest pain and Denies lightheadedness Respiratory: Respiratory: Denies cough, Denies dyspnea and Denies wheezing Gastrointestinal: Gastrointestinal: Reports no additional gastrointestinal complaints Musculoskeletal: Musculoskeletal: Reports arthralgias (Right Ankle ), Reports joint swelling (Right Ankle ), Denies numbness, Denies stiffness and Denies tingling Exam Const: General: comfortable and no acute distress Resp: Effort & Inspection: normal respiratory effort Cardio: Rate: regular rate Rhythm: regular rhythm GI: Inspection: non-distended GI Palp: Yes Soft to palpation and No Tenderness to palpation present (GI) Skin: Other: unable to assess skin, splint in place Neuro: Cognition (Neuro): normal cognition Extrem: Right lower extremity: ankle (Splint in place ) and foot (splint in place, moves toes, sensation intact to light touch.) Details: other (good capillary refill ) Psych: Mental Status: mental status grossly normal Thought content: Yes Normal thought content present Objective Data Vital Signs Vital Signs: Vital Signs - 24 hr 02/14/20 10:12 02/14/20 10:56 02/14/20 10:58 Temperature 36.2 C L 36.5 C Pulse Rate 92 70 Respiratory Rate 14 16 Blood Pressure 121/56 L 119/63 Pulse Oximetry 96 98 98 02/14/20 14:00 02/14/20 18:00 02/14/20 20:29 Temperature 36.6 C 36.4 C L Pulse Rate 72 73 84 Respiratory Rate 18 16 Blood Pressure 130/59 L 123/48 L Pulse Oximetry 97 94 02/14/20 20:59 02/15/20 02:00 02/15/20 05:50 Temperature 36.8 C 36.6 C 36.1 C L Pulse Rate 75 76 70 Respiratory Rate 16 16 16 Blood Pressure 141/60 H 136/73 141/65 H Pulse Oximetry 96 96 96 02/15/20 09:20 Temperature Pulse Rate 60 Respiratory Rate Blood Pressure Pulse Oximetry Intake/Output Intake/Output: Intake & Output 02/12/20 02/13/20 02/14/20 02/15/20 23:59 23:59 23:59 23:59 Intake Total 1100 1200 1330 540 Output Total 2650 1000 1000 600 Balance -1550 200 330 -60 Meds/Results Medications: Active Medications Generic Name Dose Route Start Last Admin Trade Name Freq PRN Reason Stop Dose Admin Acetaminophen 650 mg 02/12/20 13:29 02/13/20 08:59 Acetaminophen 325 Mg Tablet PO 650 mg Q6H PRN Administration Pain Rated 1-3 Hydrocodone Bitart/Acetaminophen 1 tab 02/12/20 13:29 02/15/20 09:19 Hydrocodone/Acetaminophen (*Crx) 7.5-325 Mg Tablet PO 1 tab Q3H PRN Administration Pain Rated 4-6 Budesonide 3 mg 02/11/20 23:00
[2020-02-15 10:00] VITALS: BP 126/59; PULSE 72; RESP 18; TEMP 36.7; O2SAT 98
--- NOTE | 2020-02-15 12:29 | PM.DS ---
DS: Admitting Diagnosis Admitting Diagnosis Admitting Diagnosis: Right ankle injury. Clarissa is an 84-year-old female with a medical history significant for paroxysmal atrial fibrillation on long-term anticoagulation, hypertension, hyperlipidemia, hypothyroidism, and lymphocytic colitis who presented to the emergency department earlier today via EMS for evaluation of a right ankle injury. Pt fell onto floor accidental fall on carpet, pt sustained displaced trimalleolar fracture of right lower leg. Unfortunately pt could not have surgery due to swelling/ soft tissue swelling of her right ankle. Pt is having Physical theraphy in the hospital. Pt to be discharged tomorrow to [facility]. Pt to return to orthopedic office on Tuesday for rexray and plan for surgery date. DS: Discharge Diagnosis Discharge Diagnosis (1) Displaced trimalleolar fracture of right ankle: Qualifiers: Encounter type: initial encounter Fracture type: closed Qualified Code(s): S82.851A - Displaced trimalleolar fracture of right lower leg, initial encounter for closed fracture Code(s): S82.851A - Displaced trimalleolar fracture of right lower leg, initial encounter for closed fracture Status: Acute Assessment and Plan: Pt fell onto floor accidental fall on carpet, pt sustained displaced trimalleolar fracture of right lower leg. Unfortunately pt could not have surgery due to swelling/ soft tissue swelling of her right ankle. Pt will need rpt xray in one weeks time, pt is for a splint to day. DC to [facility] tomorrow. Continue physical theraphy there. (2) Hypertension: Code(s): I10 - Essential (primary) hypertension Status: Acute Assessment and Plan: Continue to watch in hospital, Bp is 126/59 (3) Paroxysmal atrial fibrillation: Code(s): I48.0 - Paroxysmal atrial fibrillation Status: Acute Assessment and Plan: On sotalol (4) Current use of residential anticoagulation: Code(s): Z79.01 - half-way (current) use of anticoagulants Status: Acute Assessment and Plan: Xarelto on hold (5) Hypothyroidism: Code(s): E03.9 - Hypothyroidism, unspecified Status: Acute Assessment and Plan: On levothyroxine (6) Gastroesophageal reflux disease: Code(s): K21.9 - Gastro-esophageal reflux disease without esophagitis Status: Inactive Assessment and Plan: On omeprazole DS: Summary Time Spent with Patient Time attestation: Total time spent providing and/or coordinating discharge services:40 minutes on day of discharge Exam Narrative: Exam Narrative: General: Well-developed elderly female Respiratory: Lungs are clear to auscultation bilaterally. Cardiovascular: Regular rate and rhythm with S1-S2. Gastrointestinal: Abdomen is soft, nontender, and nondistended with positive bowel sounds. Skin: Warm and dry. Extremities: No cyanosis, clubbing, or edema. Musculoskeletal: Splint in place on R foot. sensation intact in R ankle and foot Neurological: Alert. No gross focal deficits to casual conversation. Psychiatric: Normal mood and affect. DS: Data Data Completed and Pending Labs on day of discharge: Labs from last 24 hours 02/15/20 02/15/20 02/15/20 08:28 04:53 04:53 WBC 5.8 5.7 RBC 3.33 L 3.13 L Hgb 10.4 L 9.7 L Hct 32.6 L 30.4 L MCV 97.9 97.1 MCH 31.2 31.0 MCHC 31.9 L 31.9 L RDW 13.6 13.7 Plt Count 190 176 MPV 9.6 9.4 Sodium 142 Potassium 4.2 Chloride 102 Carbon Dioxide 37 H Anion Gap 3 L BUN 15 Creatinine 0.90 Estim Creat Clear Calc 35 Estimated GFR 60 Glucose 119 H Calcium 9.0 Discharge Plan Discharge Attending physician on discharge: Giselle Gómez Consulting providers: Dedrick Zhou Discharging Clinician: Giselle Gómez Anticipated Discharge Date/Time: 02/15/20 12:27 Patient Disposition: SNF Activity: no shower, no d
== END 2020-02-15 14:00 | DRG 563 ==
LOC: ANHED 20:15 → ANH2MED 22:53
PROVIDERS: Family Medicine; Orthopaedic Surgery; Physician Assistant; Admitting Provider Family Medicine; Emergency Provider Emergency Medicine; PCP Family Medicine; Visit Provider Family Medicine
PROC: 0QSJXZZ Reposition Right Fibula, External Approach (ICD-10-PCS; principal; 2020-02-12 10:15)
DX: S82.851A Displaced trimalleolar fracture of right lower leg, initial encounter for closed fracture (principal); W01.0XXA Fall on same level from slipping, tripping and stumbling without subsequent striking against object, initial encounter; Z20.828 Contact with and (suspected) exposure to other viral communicable diseases; I48.0 Paroxysmal atrial fibrillation; E03.9 Hypothyroidism, unspecified; I10 Essential (primary) hypertension; E78.5 Hyperlipidemia, unspecified; H91.90 Unspecified hearing loss, unspecified ear; K21.9 Gastro-esophageal reflux disease without esophagitis; K52.832 Lymphocytic colitis; Z79.01 Long term (current) use of anticoagulants; Z79.899 Other long term (current) drug therapy; Z87.442 Personal history of urinary calculi; Z87.891 Personal history of nicotine dependence; Z95.0 Presence of cardiac pacemaker; Z98.49 Cataract extraction status, unspecified eye
CPT/HCPCS: 27810; 36415; 71045; 73600; 73700; 80048; 80053; 83735; 84443; 85027; 85610; 85730; 87635; 93005; 96374; 97110; 97116; 97161; 97165; 97530; 97535; 99285; A9270; C9803; J0690; J1170; J1650; J2270; J3010; J7030; J7120; U0003

== ENCOUNTER 2020-02-20 01:05 | Day surgery (SDC) | payer MEDICARE, OTHER, SELFPAY ==
[2020-02-19 13:30] VITALS: BMI 25.8
[2020-02-20] VITALS (12 sets, daily range): BP systolic 130–185; BP diastolic 65–109; PULSE 70–95; RESP 10–17; TEMP 36.4; O2SAT 93–100; BMI 26.8
--- NOTE | ~2020-02-20 | XR_ITS ---
EXAMINATION: XR surgery orthopedic EXAM DATE: 02/20/2020 14:12 INDICATION: Closed reduction external fixation right ankle fracture. TECHNIQUE: Fluoroscopy used during XR surgery orthopedic performed by Dr. Dedrick Zhou MD. The DAP for this procedure was 0.23 mGym2. FINDINGS: Images demonstrate right distal fibular and medial malleolar base fractures. External fixa tion device projecting over the hindfoot. Mortise relationship appears reduced. Correlate with proced ure note. IMPRESSION: Fluoroscopy used during right ankle reduction, external fixation. Reviewed, dictated and finalized at location B. DDER OPERATOR
--- NOTE | 2020-02-20 07:22 | WPDHPUPDATE1 ---
History and Physical Update Update Date/Time: 02/20/20 07:22 History and Physical has been reviewed, including an updated exam of the patient. There are NO changes in the patient's condition. Risks, benefits, and alternatives have been discussed and questions answered. Patient agrees to proceed with procedure.
--- NOTE | 2020-02-20 10:03 | SUR.PREOP ---
SPOKE TO DR ABREU, LEAVE SPLINT ON. NO SHAVE OR SCRUB.
[2020-02-20] MEDS: ACETAMINOPHEN 500 MG TABLET 1000 MG PO (10:23)
--- NOTE | 2020-02-20 10:25 | WPDANESEPPF ---
Anes - Initial Pre Proc Eval Procedure: Operation Date: 02/20/20 12:00 Proposed Procedures p Closed Reduction External Fixation Right Ankle - Dedrick Zhou MD Date/Time: 02/20/20 10:25 Surgeon: Dedrick Zhou MD Pre Op Diagnosis: Right Ankle Fx Patient Data Age: 84 Gender: F Height: 1.63 m Weight: 70.9 kg Allergies Allergy/AdvReac Type Severity Reaction Status Date / Time iodine Allergy Mild RASH Verified 02/20/20 10:13 alendronate sodium Allergy Unknown Rash Verified 02/20/20 10:13 celecoxib Allergy Unknown Nausea and Verified 02/20/20 10:13 Vomiting hydrocodone AdvReac Unknown nausea & Verified 02/20/20 10:13 vomiting Home Medications Medication Instructions Recorded Confirmed Type Xarelto 15 mg PO QPM 02/25/19 02/20/20 History esomeprazole magnesium 20 mg 20 mg PO DAILY #90 cap 08/13/19 02/20/20 Rx capsule,delayed release budesonide 3 mg 3 mg PO HS 08/23/19 02/20/20 History capsule,delayed,extended release ezetimibe 10 mg tablet 10 mg PO HS #90 tablet 10/03/19 02/20/20 Rx levothyroxine 88 mcg tablet 88 mcg PO DAILY #90 tablet 10/03/19 02/20/20 Rx Daily Probiotic 1 cap PO DAILY 02/11/20 02/20/20 History cetirizine 10 mg PO DAILY 02/11/20 02/20/20 History cholecalciferol (vitamin D3) 3,000 unit PO DAILY 02/11/20 02/20/20 History cranberry extract 250 mg PO DAILY 02/11/20 02/20/20 History melatonin 5 mg PO HS PRN 02/11/20 02/20/20 History sertraline [Zoloft] 50 mg PO HS 02/11/20 02/20/20 History simvastatin [Zocor] 20 mg PO HS 02/11/20 02/20/20 History sotalol 40 mg PO Q12H 02/11/20 02/20/20 History docusate sodium 100 mg PO BID PRN 30 Days #60 cap 02/15/20 02/20/20 Rx hydrocodone-acetaminophen 1 tab PO Q4-6H PRN #42 tablet 02/15/20 02/20/20 Rx Patient hx anesthesia problems: none Family hx anesthesia problems: none [facility] Past Medical History Medical History (Updated 02/18/20 @ 14:43 by Zara Fernandez RT(R)) Anxiety Current use of fdc anticoagulation Rivaroxaban for stroke prophylaxis due to AFib. 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 Aguiar. She is on budesonide q. HS. Paroxysmal atrial fibrillation Wears glasses Surgical History Surgical History History of bunionectomy History of cardiac pacemaker in situ History of cataract extraction History of cholecystectomy History of hysterectomy History of vertebroplasty (~2015) Family History Family History Mother Diabetes mellitus Father Cerebrovascular accident Family history of coronary artery disease Social History Social History (Updated 02/18/20 @ 14:43 by Zara Fernandez RT(R)) Social History: The patient is to her 2nd of 27 years. They live in [place] but spent the last 15 years in [place], [place]. Her and her currently live in the [facility]. Her is 89 years old. She is originally from [facility]. She denies alcohol, tobacco, and drug abuse. She designates her Randall and her son-in-law Wign as her surrogate decision makers and she wishes to be a full code. Smoking packs per day: 0.25 Smoking cigarettes per day: 5.0 Smoking status: Former smoker Tobacco type: cigarettes Second hand tobacco smoke exposure: No Alcohol intake: current Substance use: never Living arrangements: assisted living Additional living arrangements comments: [facility] Additional occupation/education comments: last worked in 8. Gender identity (if verbalized by the patient): Female Spiritual care concerns: No Anes - Eval Final PreProcedure Day of Procedure 02/20/20 10:25 Patient weight: overweight Heart: regular ra
--- NOTE | 2020-02-20 10:36 | SUR.PREOP ---
NOTIFIED BOTH DR ABREU AND DR POSEY, PT TOOK HER XARELTO YESTERDAY, 02/19/20
[2020-02-20] MEDS: LACTATED RINGERS 1,000 ML 30 ML IV CONT (10:58)
--- NOTE | 2020-02-20 11:55 | SUR.PREOP ---
REPORT GIVEN TO HOA RAMIREZ
[2020-02-20] MEDS: ceFAZolin 2 GM/D5W 50 ML 2 GM/50 ML BAG IVPB (13:11)
--- NOTE | 2020-02-20 14:18 | PM.PROC ---
Procedure Note - Detailed Date of procedure: 02/20/20 Pre-op diagnosis: Right TRIMALLEOLAR ANKLE FRACTURE DISLOCATION Post-op diagnosis: same Procedure performed: EXTERNAL FIXATOR RIGHT ANKLE Description of procedure: THE PATIENT WAS TAKEN TO THE OR AND WAS INTUBATED AND PLACED UNDER GENERAL ANESTHESIA. THE RIGHT LOWER EXTREMITY WAS PREPPED AND DRAPED IN THE STERILE FASHION. THERE WAS BLISTERING ABOUT THE ANKLE REGION ON BOTH THE MEDIAL AND LATERAL SIDES. THERE WAS ALSO SEVERE ECCHYMOSIS AND SWELLING ABOUT THE WHOLE REGION OF THE ANKLE. THE BLISTERING WAS DEBRIDED TO HEALTHY SKIN AND WASHED THOROUGHLY. ONCE THAT WAS PREFORMED USING FLUOROSCOPY 2 LARGE SHANTZ PINS WERE PLACED IN THE MID TO DISTAL TIBIA. ONCE THAT WAS PREFORMED AN INCISION WAS MADE AT THE MID CALCANEUS ON THE MEDIAL SIDE AND DISSECTION WAS DONE WITH A HEMOSTAT DOWN TO BONE. THE CALCANEAL PIN WAS PLACED FROM MEDIAL TO LATERAL EXITING THROUGH THE LATERAL CORTEX OF THE CALCANEUS. THE EXTERNAL FIXATOR WAS ASSEMBLED AND THE ANKLE FRACTURE REDUCED TO NEAR ANATOMIC POSITION AND THEN LOCKED IN PLACE. XRAYS SHOWED GOOD POSITION OF FRACTURE FRAGMENTS AND ANKLE JOINT. THE WOUNDS WERE WASHED AND STERILE DRESSING APPLIED. THE PATIENT WAS EXTUBATED AND SENT TO RECOVERY ROOM. Anesthesia: GLMA Surgeon: Dedrick Zhou MD Estimated blood loss (mL): 5 Complications: No immediate complications Condition: stable Disposition: PACU
[2020-02-20] MEDS: fentaNYL CITRATE INJ (*CRX) 100 MCG/2 ML VIAL 25 MCG IV PUSH ×4 (14:55→17:03)
[2020-02-20] MEDS: oxyCODONE HCL (*CRX) 2.5 MG TAB IR PO (16:41)
--- NOTE | 2020-02-20 17:46 | SUR.PHASEII ---
1705 SPOKE WITH GITA AT [facility] WHO STATES SHE WILL BE CARING FOR PT HOLLEY. POST ORDERS REVIEWED.
== END 2020-02-20 17:30 ==
PROVIDERS: PCP Family Medicine; Visit Provider Orthopaedic Surgery
PROC: (CPT 20690; principal; 2020-02-20 12:00)
DX: S82.851A Displaced trimalleolar fracture of right lower leg, initial encounter for closed fracture (principal); W19.XXXA Unspecified fall, initial encounter; I10 Essential (primary) hypertension; E03.9 Hypothyroidism, unspecified; E78.5 Hyperlipidemia, unspecified; I48.0 Paroxysmal atrial fibrillation; F41.9 Anxiety disorder, unspecified; K21.9 Gastro-esophageal reflux disease without esophagitis; K52.832 Lymphocytic colitis; Z79.01 Long term (current) use of anticoagulants; Z95.0 Presence of cardiac pacemaker; Z87.891 Personal history of nicotine dependence
CPT/HCPCS: 20690; A9270; J0690; J2405; J2704; J3010; J7120

== ENCOUNTER 2020-03-13 01:05 | Day surgery (SDC) | payer OTHER, MEDICARE, SELFPAY ==
[2020-03-06 15:46] VITALS: BMI 26.4
--- NOTE | 2020-03-06 16:07 | PC.NURSE ---
STEP SON STATES NO CHANGE IN HEALTH HX SINCE LAST INTERVIEW ON 02/19/20
[2020-03-13] VITALS (12 sets, daily range): BP systolic 116–161; BP diastolic 55–80; PULSE 68–75; RESP 12–20; TEMP 35.9–36.9; O2SAT 94–100
--- NOTE | ~2020-03-13 | XR_ITS ---
EXAMINATION: XR surgery orthopedic EXAM DATE: 03/13/2020 12:13 INDICATION: Removal of right ankle external fixator, ORIF. TECHNIQUE: Fluoroscopy used during XR surgery orthopedic performed by Dr. Ronald Marie MD. The DAP for this procedure was 0.04 mGym2. Correlation made to prior study from 02/20/2020 FINDINGS: External fixation hardware has been removed. There is been placement of right distal fibul ar and tibial lateral and medial plates respectively with supporting screws. Hardware is in expected position. Ankle mortise appears in anatomic alignment. Correlate with procedure note. IMPRESSION: Fluoroscopy used during right ankle ORIF. Reviewed, dictated and finalized at location A. PROTECTION EQUIPMENT TECHNICIAN
--- NOTE | 2020-03-13 07:18 | WPDHPUPDATE1 ---
History and Physical Update Update Date/Time: 03/13/20 07:18 History and Physical has been reviewed, including an updated exam of the patient. There are NO changes in the patient's condition. Covid test negative Risks, benefits, and alternatives have been discussed and questions answered. Patient agrees to proceed with procedure.
[2020-03-13] MEDS: ACETAMINOPHEN 500 MG TABLET 1000 MG PO (08:33)
[2020-03-13] MEDS: LACTATED RINGERS 1,000 ML 30 ML IV CONT ×2 (08:33→12:46)
[2020-03-13 08:47] LABS: Glucose Point of Care 98 (65-105)
--- NOTE | 2020-03-13 09:27 | WPDANESEPPF ---
Anes - Initial Pre Proc Eval Procedure: Operation Date: 03/13/20 10:00 Proposed Procedures p Removal Right Ankle External Fixator, - Ronald Marie MD s Open Reduction Internal Fixation Right Ankle - Ronald Marie MD Date/Time: 03/13/20 09:27 Surgeon: Ronald Marie MD Pre Op Diagnosis: right ankle fx Patient Data Age: 84 Gender: F Height: 5 ft 4 in Weight: 67.5 kg Last Vital Signs Temp 35.9 C L 03/13/20 08:47 Pulse 70 03/13/20 08:47 Resp 16 03/13/20 08:47 BP 146/64 H 03/13/20 08:47 Pulse Ox 99 03/13/20 08:47 Allergies Allergy/AdvReac Type Severity Reaction Status Date / Time alendronate sodium Allergy Mild Rash Verified 03/13/20 08:00 iodine Allergy Mild RASH Verified 03/13/20 08:00 celecoxib AdvReac Mild Nausea and Verified 03/13/20 08:00 Vomiting hydrocodone AdvReac Mild nausea & Verified 03/13/20 08:00 vomiting Home Medications Medication Instructions Recorded Confirmed Type Xarelto 15 mg PO QPM 02/25/19 03/13/20 History esomeprazole magnesium 20 mg 20 mg PO DAILY #90 cap 08/13/19 03/13/20 Rx capsule,delayed release budesonide 3 mg 3 mg PO HS 08/23/19 03/13/20 History capsule,delayed,extended release ezetimibe 10 mg tablet 10 mg PO HS #90 tablet 10/03/19 03/13/20 Rx levothyroxine 88 mcg tablet 88 mcg PO DAILY #90 tablet 10/03/19 03/13/20 Rx cetirizine 10 mg PO DAILY 02/11/20 03/13/20 History cholecalciferol (vitamin D3) 3,000 unit PO DAILY 02/11/20 03/13/20 History melatonin 5 mg PO HS PRN 02/11/20 03/13/20 History sertraline [Zoloft] 50 mg PO HS 02/11/20 03/06/20 History simvastatin [Zocor] 20 mg PO HS 02/11/20 03/13/20 History sotalol 40 mg PO Q12H 02/11/20 03/13/20 History docusate sodium 100 mg PO BID PRN 30 Days #60 cap 02/15/20 03/13/20 Rx hydrocodone-acetaminophen 1 tab PO Q4-6H PRN #42 tablet 02/15/20 03/13/20 Rx Lactobacillus acidoph-L.bulgar 1 tablet PO DAILY 03/06/20 03/13/20 History bisacodyl 10 mg PO PRN PRN 03/06/20 03/13/20 History cranberry fruit concentrate [Azo 250 mg PO TID 03/06/20 03/13/20 History Cranberry] polyethylene glycol 3350 [Miralax] 17 g PO DAILY 03/06/20 03/13/20 History Laboratory Tests 03/13/20 08:45 POC Capillary Glucose 98 mg/dl mg/dl (65-105) Patient hx anesthesia problems: none Family hx anesthesia problems: none PMFSH Past Medical History Medical History Anxiety Current use of custodial anticoagulation Rivaroxaban for stroke prophylaxis due to AFib. 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 Aguiar. She is on budesonide q. HS. Painful orthopaedic hardware Paroxysmal atrial fibrillation Wears glasses Surgical History Surgical History History of bunionectomy History of cardiac pacemaker in situ History of cataract extraction History of cholecystectomy History of hysterectomy History of vertebroplasty (~2015) Family History Family History Mother Diabetes mellitus Father Cerebrovascular accident Family history of coronary artery disease Social History Social History Social History: The patient is to her 2nd of 27 years. They live in [place] but spent the last 15 years in [place], [place]. Her and her currently live in the [facility]. Her is 89 years old. She is originally from [facility]. She denies alcohol, tobacco, and drug abuse. She designates her Randall and her son-in-law Wing as her surrogate decision makers and she wishes to be a full code. Smoking packs per day: 0.25 Smoking cigarettes per day: 5.0 Smoking status: Fo
[2020-03-13] MEDS: ceFAZolin 2 GM/D5W 50 ML 2 GM/50 ML BAG IVPB (09:49)
[2020-03-13] MEDS: BUPIVACAINE HCL 0.5% PF 30 ML VIAL INFILTRATE (10:39)
--- NOTE | 2020-03-13 11:53 | SUR.OPER ---
Dr. Marie made aware of 1 hour tourniquet time
[2020-03-13] MEDS: fentaNYL CITRATE INJ (*CRX) 100 MCG/2 ML VIAL 25 MCG IV PUSH ×4 (12:54→13:15)
[2020-03-13 13:00] LABS: Glucose Point of Care 140 (65-105)
--- NOTE | 2020-03-13 13:43 | PM.PROC ---
Procedure Note - Detailed Date of procedure: 03/13/20 Pre-op diagnosis: right ankle fx External fixator in place right ankle. Right ankle trimalleolar fracture dislocation. Post-op diagnosis: same Procedure performed: Removal of external fixator right leg, open reduction internal fixation right ankle trimalleolar fracture Description of procedure: Operative indications: Patient is a 84 year-old woman who sustained an injury to the ankle. Radiographs show distal fibular fracture with displacement. Medial malleolus fracture with displacement and posterior malleolus fracture. Widening of the ankle mortise noted. initially patient noted to have instability of the fracture which was not controlled with a splint. She also had significant swelling and soft tissue compromise with fracture blisters. She was placed into an external fixator for stabilization. Her soft tissues have now improved. Patient presents for operative treatment. Full discussion of the risks, benefits and alternatives of surgery was had with the patient. Questions answered. Patient verbalizes understanding and wishes to proceed. What was done: After informed consent, the operative extremity was marked in the preoperative holding area. Patient received intravenous antibiotics. Patient was then taken to the operating room and underwent general anesthesia by the anesthesia team. Positioned supine on the operating room table with a soft bump under the ipsilateral hip. A time-out was performed confirming the patient, site of the surgery, operative plan. Lower extremity then prepped and draped in the usual sterile surgical fashion using Betadine skin solution. Foot and ankle exsanguinated and a thigh tourniquet inflated to 250 mmHg. External fixator was addressed 1st. The wrench for the system was used to loosen up the pin to bar clamps. The bars were removed. The pins were then removed from the tibia and the calcaneus. The wounds are thoroughly irrigated with antibiotic solution. The ankle fracture was then addressed. Longitudinal incision made over the lateral ankle distal fibula with a 15 blade knife. Hemostasis controlled with electrocautery. Full-thickness soft tissue flaps developed and the fascia was incised in line with the skin incision. Fracture identified and cleared with a dental pick, irrigation and rongeur. Fracture reduced and held with bone-holding clamp. Image intensification confirmed reduction of the fracture and the ankle mortise. Neutralization with a lateral plate with unicortical screws distal to fracture and bicortical screws proximal to the fracture. Good alignment and stability of the fracture noted. Several syndesmosis and transtibial screws were utilized to provide stability with osteoporotic bone. Image intensification used to confirm reduction of the fracture and placement of the hardware. Medial side then addressed. Longitudinal incision made with a 15 blade knife over the medial malleolus fracture. Hemostasis controlled with electrocautery. Fascia incised in line with skin incision. Periosteum cleared from the medial malleolus fracture. Medial side of the joint inspected and noted to have mild amount of trauma to the chondral surface. Thorough irrigation of the ankle joint and suctioned out. Fracture reduced and provisionally pinned. Fixation achieved with 3.5 mm hook plate with 4.0 mm cannulated screw placed through the distal plate into the tibia. More proximal bicortical screws utilized. Image intensification confirmed reduction of the fracture and placement of the hardware. Stress of the ankle performed with good stability of the ankle mortise in all directions. Posterior malleolus noted to be reduced and stable. Wounds thoroughly irrigated with antibiotic solution. Fascia repaired with 00 Vicryl interrupted suture. Subcutaneous tissue repaired with 000 Monocryl interrupted suture and Skin approximated with tolu. Sterile dressings applied followed by
--- NOTE | 2020-03-13 14:03 | PC.NURSE ---
This patient, Anila Romo, was admitted to 2 Medical Room 255-01. Patient/family oriented to hospital policies and general routines including ID bracelet, bed and alarms, visiting hours, pain management, procedures, bathroom and other care routines, personal items, smoking policy, room service/diet, and visiting hours. Information on how to activate the Rapid Response Team has been discussed. Patient/Family are encouraged to report perceived risks to care and to ask questions if they do not understand what they are told or what they should do.
[2020-03-13] MEDS: HYDROcodone/acetaminophen (*CRX) 7.5-325 MG TABLET 1 TAB PO ×2 (15:21→19:59)
[2020-03-13] MEDS: RIVAROXABAN 15 MG TABLET PO (18:12)
[2020-03-13] MEDS: DOCUSATE SODIUM 100 MG CAPSULE PO (18:13)
[2020-03-13] MEDS: SOTALOL HCL 40 MG TABLET PO (18:17)
[2020-03-13] MEDS: EZETIMIBE 10 MG TABLET PO (20:48)
[2020-03-13] MEDS: SIMVASTATIN 20 MG TABLET PO (20:48)
[2020-03-13] MEDS: BUDESONIDE 3 MG CAP.SR.24H PO (20:48)
[2020-03-13] MEDS: SERTRALINE HCL 50 MG TABLET PO (20:48)
[2020-03-13] MEDS: FAMOTIDINE 20 MG TABLET PO (20:49)
[2020-03-14] MEDS: HYDROcodone/acetaminophen (*CRX) 7.5-325 MG TABLET 1 TAB PO ×3 (00:07→10:36)
[2020-03-14 00:23] VITALS: BP 104/53; PULSE 70; RESP 20; TEMP 36.6; O2SAT 98
[2020-03-14 04:00] VITALS: BP 124/54; PULSE 73; RESP 20; TEMP 36.3; O2SAT 95
[2020-03-14 05:28] LABS: Basophils Percent Auto 0.2 % (0.2-1.2); Eosinophils Percent Auto 0.1 % (0-4.4); Hematocrit 27.6 % (37.0-47.0); Hemoglobin 8.7 g/dL (12.0-15.0); Immature Granulocyte Absolute 0.04 K/mm3 (0.00-0.031); Immature Granulocyte Percent A 0.5 % (0-0.5); Lymphocytes Absolute Auto 1.31 K/mm3 (0.9-3.2); Lymphocytes Percent Auto 15.2 % (18.3-44.2); Mean Corpuscular HGB Conc 31.5 g/dl (32-36); Mean Corpuscular Hemoglobin 29.3 pg (26-34); Mean Corpuscular Volume 92.9 fl (80-100); Mean Platelet Volume 9.6 fl (7.4-10.4); Monocytes Absolute Auto 0.8 K/mm3 (0.1-0.6); Monocytes Percent Auto 8.8 % (2.6-8.5); Neutrophils Absolute Auto 6.5 K/mm3 (1.3-6.7); Neutrophils Percent Auto 75.2 % (45.5-73.1); Platelet Count Result 205 k/mm3 (150-375); Red Blood Count 2.97 M/mm3 (4.2-5.4); Red Cell Distribution Width 13.4 % (11.5-14.5); White Blood Count 8.6 K/mm3 (4.5-10.0)
[2020-03-14 05:56] VITALS: PULSE 72
[2020-03-14] MEDS: SOTALOL HCL 40 MG TABLET PO (05:56)
[2020-03-14] MEDS: LEVOTHYROXINE SODIUM 88 MCG TABLET PO (05:57)
[2020-03-14 05:59] LABS: Anion Gap 5 mmol/L (8-16); Blood Urea Nitrogen 14 mg/dL (7-17); Calcium 8.9 mg/dL (8.4-10.2); Carbon Dioxide 30 mmol/L (22-30); Chloride 103 mmol/L (98-107); Estimated CRCL calculation 39 ml/min; Estimated Glomerular Filt Rate > 60; Glucose 114 mg/dL (65-105); Potassium 4.4 mmol/L (3.4-5.0); Sodium 138 mmol/L (137-145)
[2020-03-14] MEDS: polyethylene glycoL 3350 17 GM POWD.PACK PO (08:14)
[2020-03-14] MEDS: CHOLECALCIFEROL 1,000 UNITS TABLET 3000 UNITS PO (08:14)
[2020-03-14] MEDS: DOCUSATE SODIUM 100 MG CAPSULE PO (08:15)
[2020-03-14] MEDS: FAMOTIDINE 20 MG TABLET PO (08:15)
[2020-03-14] MEDS: PANTOPRAZOLE 40 MG TABLET PO (08:15)
[2020-03-14] MEDS: ACIDOPHILUS/BULGARICUS CHEWABLE TABLET 1 TABLET PO (08:15)
[2020-03-14] MEDS: LORATADINE 10 MG TABLET PO (08:15)
--- NOTE | 2020-03-14 09:17 | PM.PNORT ---
Progress Note: A&P Assessment and Plan (1) Displaced trimalleolar fracture of right ankle: Qualifiers: Encounter type: subsequent encounter Fracture type: closed Fracture healing: with routine healing Qualified Code(s): S82.851D - Displaced trimalleolar fracture of right lower leg, subsequent encounter for closed fracture with routine healing Code(s): S82.851A - Displaced trimalleolar fracture of right lower leg, initial encounter for closed fracture Status: Acute Assessment and Plan: Postop day 1 open reduction internal fixation right ankle fracture. Patient doing well. Plan for PT / OT this morning. Transfer to nursing if pain controlled. Subjective Subjective Date/Time Seen: 03/14/20 09:17 patient awake and alert. Complains of right ankle pain. No major problems overnight. Tolerating regular diet. Exam Const: General: comfortable and no acute distress Resp: Effort & Inspection: normal respiratory effort Cardio: Rate: regular rate Rhythm: regular rhythm GI: Inspection: non-distended GI Palp: Yes Soft to palpation and No Tenderness to palpation present (GI) Neuro: Cognition (Neuro): normal cognition Extrem: Right lower extremity: ankle (Splint in place ) and foot (splint in place, moves toes, sensation intact to light touch.) Details: other (good capillary refill ) Other: Right leg cast in place. Good capillary refill in the toes. Able to move toes and good sensation. Psych: Mental Status: mental status grossly normal Thought content: Yes Normal thought content present Objective Data Vital Signs Vital Signs: Vital Signs - 24 hr 03/13/20 12:46 03/13/20 13:00 03/13/20 13:15 Temperature 97.9 F Pulse Rate 71 70 73 Respiratory Rate 14 12 12 Blood Pressure 124/57 L 161/80 H 149/73 H Pulse Oximetry 99 100 96 03/13/20 13:30 03/13/20 13:45 03/13/20 13:47 Temperature 97.6 F Pulse Rate 70 70 70 Respiratory Rate 14 14 14 Blood Pressure 139/69 138/64 116/55 L Pulse Oximetry 95 94 100 03/13/20 14:02 03/13/20 14:32 03/13/20 15:32 Temperature 97.7 F 97.3 F L 97.5 F L Pulse Rate 70 68 72 Respiratory Rate 15 18 16 Blood Pressure 130/61 128/69 125/64 Pulse Oximetry 94 97 98 03/13/20 18:17 03/13/20 20:00 03/14/20 00:23 Temperature 98.4 F 98 F Pulse Rate 68 75 70 Respiratory Rate 20 20 Blood Pressure 116/58 L 104/53 L Pulse Oximetry 95 98 03/14/20 04:00 03/14/20 05:56 Temperature 97.3 F L Pulse Rate 73 72 Respiratory Rate 20 Blood Pressure 124/54 L Pulse Oximetry 95 Intake/Output Intake/Output: Intake & Output 03/11/20 03/12/20 03/13/20 03/14/20 23:59 23:59 23:59 23:59 Intake Total 880 300 Output Total 60 750 Balance 820 -450 Meds/Results Medications: Active Medications Generic Name Dose Route Start Last Admin Trade Name Freq PRN Reason Stop Dose Admin Acetaminophen 650 mg 03/13/20 13:47 Acetaminophen 325 Mg Tablet PO Q6H PRN Fever Hydrocodone Bitart/Acetaminophen 1 tab 03/13/20 13:47 03/14/20 05:36 Hydrocodone/Acetaminophen (*Crx) 7.5-325 Mg Tablet PO 1 tab Q4-6H PRN Administration Pain Rated 4-6 Bisacodyl 10 mg 03/13/20 13:47 Bisacodyl 5 Mg Tablet Ec PO PRN PRN Constipation Budesonide 3 mg 03/13/20 21:00 03/13/20 20:48 Budesonide 3 Mg Cap.Sr.24h PO 3 mg HS ISHMAEL Administration Docusate Sodium 100 mg 03/13/20 13:47 Docusate Sodium 100 Mg Capsule PO BID PRN constipation Docusate Sodium 100 mg 03/13/20 17:00 03/14/20 08:15 Docusate Sodium 100 Mg Capsule PO 100 mg BID ISHMAEL Administration Ezetimibe 10 mg 03/13/20 21:00 03/13/20 20:48 Ezetimibe 10 Mg Tablet PO 10 mg HS ISHMAEL Administration Famotidine 20 mg 03/13/20 21:00 03/14/20 08:15 Famotidine 20 Mg Tablet PO 20 mg Q12HR ISHMAEL Administration Ibuprofen 400 mg/ Sodium 104 mls @ 200 mls/hr 03/13/20 13:47 Chloride IVPB Q6H PRN Pain Rated 4-6
--- NOTE | 2020-03-14 09:27 | PM.DS ---
DS: Admitting Diagnosis Admitting Diagnosis Admitting Diagnosis: Right ankle trimalleolar fracture, external fixator DS: Discharge Diagnosis Discharge Diagnosis (1) Displaced trimalleolar fracture of right ankle: Qualifiers: Encounter type: subsequent encounter Fracture type: closed Fracture healing: with routine healing Qualified Code(s): S82.851D - Displaced trimalleolar fracture of right lower leg, subsequent encounter for closed fracture with routine healing Code(s): S82.851A - Displaced trimalleolar fracture of right lower leg, initial encounter for closed fracture Status: Acute Assessment and Plan: Pt fell onto floor accidental fall on carpet, pt sustained displaced trimalleolar fracture of right lower leg. status post removal of external fixator and open reduction internal fixation right ankle fracture. Cast in place. Nonweightbearing right leg. Edema control. (2) Hypertension: Qualifiers: Hypertension type: essential hypertension Qualified Code(s): I10 - Essential (primary) hypertension Code(s): I10 - Essential (primary) hypertension Status: Acute Assessment and Plan: Continue to watch in hospital, Bp is 126/59 (3) Paroxysmal atrial fibrillation: Code(s): I48.0 - Paroxysmal atrial fibrillation Status: Acute Assessment and Plan: On sotalol (4) Current use of watermelon inspector anticoagulation: Code(s): Z79.01 - computer terminal operator (current) use of anticoagulants Status: Acute Assessment and Plan: Xarelto on hold DS: Summary Hospital Course Hospital Course: open reduction internal fixation right ankle on March 13. Admitted to floor postoperatively. Followed routine postoperative course. [facility]. Time Spent with Patient Time attestation: Total time spent providing and/or coordinating discharge services: Patient Admitted and taken the operating room on March 13, 2020. Underwent removal of external fixator and open reduction internal fixation right ankle. No complications. Admitted to the floor postoperatively. Followed routine postoperative course. PT/ OT for transfers with nonweightbearing. Pain controlled with oral medication. On hospital day 1. She was tolerating regular diet and voiding appropriately. Her pain was controlled and she was cleared for [facility]. Exam Const: General: comfortable and no acute distress Resp: Effort & Inspection: normal respiratory effort Cardio: Rate: regular rate Rhythm: regular rhythm GI: Inspection: non-distended GI Palp: Yes Soft to palpation and No Tenderness to palpation present (GI) Neuro: Cognition (Neuro): normal cognition Extrem: Right lower extremity: ankle (Splint in place ) and foot (splint in place, moves toes, sensation intact to light touch.) Details: other (good capillary refill ) Other: Right leg cast in place. Good capillary refill in the toes. Able to move toes and good sensation. Psych: Mental Status: mental status grossly normal Thought content: Yes Normal thought content present DS: Data Data Completed and Pending Labs on day of discharge: Labs from last 24 hours 03/14/20 03/14/20 03/13/20 05:11 05:11 12:58 WBC 8.6 RBC 2.97 L Hgb 8.7 L Hct 27.6 L MCV 92.9 MCH 29.3 MCHC 31.5 L RDW 13.4 Plt Count 205 MPV 9.6 Immature Gran % (Auto) 0.5 Neut % (Auto) 75.2 H Lymph % (Auto) 15.2 L [place] % (Auto) 8.8 H Eos % (Auto) 0.1 Baso % (Auto) 0.2 Lymph # (Auto) 1.31 [place] # (Auto) 0.8 H Eos # (Auto) 0.0 Baso # (Auto) 0.0 Abs Immat Gran (auto) 0.04 H Absolute Neuts (auto) 6.5 Absolute Nucleated RBC 0.0 Nucleated RBC % 0.0 Sodium 138 Potassium 4.4 Chloride 103 Carbon Dioxide 30 Anion Gap 5 L BUN 14 Creatinine 0.80 Estim Creat Clear Calc 39 Estimated GFR > 60 Glucose 114 H
[2020-03-14 10:00] VITALS: BP 118/43; PULSE 72; RESP 16; TEMP 36.4; O2SAT 96
--- NOTE | 2020-03-14 10:45 | P.PNAN_ITS ---
Anes - Prog Note Post-Op Date/Time: 03/14/20 10:45 Cardiovascular status: normal Respiratory status: normal Airway patency: baseline Mental status: baseline Post-Op hydration status: normal Vital Signs: Last Vital Signs Temp 36.4 C L 03/14/20 10:00 Pulse 72 03/14/20 10:00 Resp 16 03/14/20 10:00 BP 118/43 L 03/14/20 10:00 Pulse Ox 96 03/14/20 10:00 Pain Score (VAS): 3 I/O: Intake & Output 03/13/20 03/14/20 03/14/20 23:59 07:59 15:59 Intake Total 530 300 100 Output Total 750 Balance 530 -450 100 Laboratory Tests 03/14/20 05:11 03/14/20 05:11 03/13/20 03/14/20 03/14/20 12:58 05:11 05:11 WBC 8.6 RBC 2.97 L Hgb 8.7 L Hct 27.6 L MCV 92.9 MCH 29.3 MCHC 31.5 L RDW 13.4 Plt Count 205 MPV 9.6 Immature Gran % (Auto) 0.5 Neut % (Auto) 75.2 H Lymph % (Auto) 15.2 L [place] % (Auto) 8.8 H Eos % (Auto) 0.1 Baso % (Auto) 0.2 Lymph # (Auto) 1.31 [place] # (Auto) 0.8 H Eos # (Auto) 0.0 Baso # (Auto) 0.0 Abs Immat Gran (auto) 0.04 H Absolute Neuts (auto) 6.5 Absolute Nucleated RBC 0.0 Nucleated RBC % 0.0 Sodium 138 Potassium 4.4 Chloride 103 Carbon Dioxide 30 Anion Gap 5 L BUN 14 Creatinine 0.80 Estim Creat Clear Calc 39 Estimated GFR > 60 Glucose 114 H POC Capillary Glucose 140 H Calcium 8.9 Post-procedural complaints: none Patient Feedback: Patient satisfied with anesthetic care.
--- NOTE | 2020-03-14 11:14 | PCOTNOTE ---
OT evaluation attempted. Patient feeling unwell and having just received pain medication. Patient requesting OT come back at later time.
== END 2020-03-14 13:44 ==
LOC: ANHSURGERY 07:54 → ANH2MED 13:50
PROVIDERS: PCP Family Medicine; Visit Provider Orthopaedic Surgery
PROC: (CPT 27822; principal; 2020-03-13 10:00)
PROC: (CPT 27822; 2020-03-13 10:00)
DX: S82.851A Displaced trimalleolar fracture of right lower leg, initial encounter for closed fracture (principal); W19.XXXA Unspecified fall, initial encounter; F41.9 Anxiety disorder, unspecified; Z79.01 Long term (current) use of anticoagulants; H91.90 Unspecified hearing loss, unspecified ear; Z87.442 Personal history of urinary calculi; E78.5 Hyperlipidemia, unspecified; I10 Essential (primary) hypertension; K52.832 Lymphocytic colitis; I48.91 Unspecified atrial fibrillation; Z87.891 Personal history of nicotine dependence
CPT/HCPCS: 27822; 20694; 36415; 80048; 85025; 97110; 97116; 97161; 97165; 97530; A9270; C1713; C1769; J0690; J1040; J1100; J2405; J2704; J3010; J7120

== ENCOUNTER 2020-06-25 14:23 | Outpatient (CLI) | payer MEDICARE, OTHER, SELFPAY ==
--- NOTE | ~2020-06-25 | CT_ITS ---
EXAMINATION: CT lumbar spine [facility] EXAM DATE: 06/25/2020 14:49 INDICATION: Lumbar radiculopathy. TECHNIQUE: Spiral CT of the lumbar spine was performed without contrast. Axial, coronal and sagittal images were reviewed. The dose-length product (DLP) for this examination was 713.94 mGy-cm. The e xposure was tailored according to patient size (auto mA exposure control), and iterative reconstructi on (ASIR) was used as additional dose reduction technique. Comparison is made to prior examination fr 07/27/2016. FINDINGS: Chronic treated burst fracture of the L1 level with moderate to severe loss of this height centrally. Also chronic L3 burst fracture with mild to moderate loss of its height diffusely. Only a few millimeters of retropulsion at both of these burst fractures, unchanged. Chronic mild to moderate compression fracture at L4 and mild at L5. Interval development of vague sclerosis of the right sacral ala, appearance consistent with subacute insufficiency fracture. There are no acute fractures identified. The vertebral bodies are aligned i n the AP dimension. There is minimal lumbar levoscoliosis. Moderate to severe disc disease at L4-5, m oderate at L1-2 and L3-4 and L5-S1. Level by level evaluation: T10-11: There is a mild to moderate diffuse disc bulge. Facet arthropathy: Mild to moderate. Neural foraminal stenosis: Moderate left, mild to moderate right. Central canal stenosis: Mild to moderate. T11-12: There is a mild diffuse disc bulge. Facet arthropathy: Moderate left, mild right. Neural foraminal stenosis: Moderate left, mild right. Central canal stenosis: Mild. T12-L1: There is a mild to moderate diffuse disc bulge. Facet arthropathy: Mild to moderate. Neural foraminal stenosis: Mild to moderate right, mild left. Central canal stenosis: Mild. L1-L2: There is a moderate diffuse disc bulge. Facet arthropathy: Moderate. Neural foraminal stenosis: Moderate to severe right, moderate left. Central canal stenosis: Moderate. L2-L3: There is a moderate diffuse disc bulge. Facet arthropathy: Moderate to severe right, moderate left. Neural foraminal stenosis: Moderate to severe right, mild to moderate left. Central canal stenosis: Mild to moderate. L3-L4: There is a moderate diffuse disc bulge. Facet arthropathy: Moderate to severe right, moderate left. Neural foraminal stenosis: Moderate right, mild to moderate left. Central canal stenosis: Moderate. L4-L5: There is a moderate diffuse disc bulge. Facet arthropathy: Severe right, moderate to severe left. Neural foraminal stenosis: Moderate right, mild to moderate left. Central canal stenosis: Moderate to severe. L5-S1: There is a moderate diffuse disc bulge. Facet arthropathy: Moderate to severe bilateral. Neural foraminal stenosis: Moderate to severe left, mild to moderate right. Central canal stenosis: Moderate. Aside from the newly developed right sacral subacute appearing fracture, there may be mild overall pr ogression in spondylosis compared to 2017. IMPRESSION: 1. Subacute appearing right sacral ala insufficiency fracture. 2. Chronic lumbar burst and compression fractures unchanged. 3. Advanced lumbar spondylosis. Reviewed, dictated and finalized at location A.
== END 2020-06-25 14:24 | disposition home or self-care (01) ==
PROVIDERS: PCP Family Medicine; Visit Provider Nurse Practitioner Family
DX: M48.05 Spinal stenosis, thoracolumbar region (principal); M47.27 Other spondylosis with radiculopathy, lumbosacral region; M48.07 Spinal stenosis, lumbosacral region; S32.012A Unstable burst fracture of first lumbar vertebra, initial encounter for closed fracture; M47.25 Other spondylosis with radiculopathy, thoracolumbar region
CPT/HCPCS: 72131

== ENCOUNTER 2020-07-31 06:30 | Emergency (ER) | payer MEDICARE, OTHER, SELFPAY ==
--- NOTE | ~2020-07-31 | CT_ITS ---
EXAMINATION: CT abdomen pelvis wo con DATE: 07/31/2020 07:48 INDICATION: Lower abdominal pain and diarrhea TECHNIQUE: Computed tomography (CT) of the abdomen and pelvis was performed without intravenous contr ast. The dose-length product (DLP) was 351.92 mGy-cm. Automated exposure control and iterative recons truction technique were employed. COMPARISON: 02/25/2019, 06/25/2020 FINDINGS: Minimal dependent atelectasis is present in the lung bases. The heart size is normal. The g allbladder is surgically absent. There is mild enlargement of the common bile duct and central intrah epatic ducts which is likely due to post cholecystectomy state. There are stable fluid attenuation le sions of the spleen, largest of which is rim calcified and measures 1.6 cm, likely cysts. The liver, pancreas, and adrenal glands are normal. The kidneys are unremarkable. There is calcified atheroscler osis of the aorta and many of the other arteries. No pathologically enlarged abdominal or pelvic lymp h nodes are identified. There are multiple colonic diverticula. There is edematous stranding of the p erisigmoid fat near the rectosigmoid junction. No free intraperitoneal gas is identified. There are b ilateral sacral insufficiency fractures. There is an L1 burst fracture with vertebroplasty change. A chronic L3 burst fracture is unchanged. There is severe lumbar spondylosis. IMPRESSION: 1. Uncomplicated acute sigmoid diverticulitis. 2. Sacral insufficiency fractures, new on the left. Reviewed, dictated and finalized at location A.
[2020-07-31 06:29] VITALS: BP 135/62; PULSE 63; RESP 16; TEMP 36.8; O2SAT 98
--- NOTE | 2020-07-31 07:20 | PC.NURSE ---
Assumed care of pt at this time, report taken from Timoteo RAMIREZ. Pt resting on stretcher, VSS.
--- NOTE | 2020-07-31 07:33 | ED.ABDPAIN ---
HPI - Abdominal Pain General Chief Complaint: Abdominal Pain Stated Complaint: abd pain Time Seen by Provider: 07/31/20 07:09 History of Present Illness HPI narrative: 85 yo female presents to the ED for dirrhea. She reports that she has had diarrhea for the past 2 weeks. She reports frequent dark, loose stools. She has not noted and blood. Since the diarrhea started she has had progressive lower abdominal pain. This is intermittent and mild to moderate in severity. She also has associated nausea, no vomiting. The diarrhea started after she was put on hydrocodone for chronic back pain. She chest pain, SOB, weakness, dizziness. Related Data Home Medications Medication Instructions Recorded Confirmed budesonide 3 mg 3 mg PO HS 08/23/19 07/17/20 capsule,delayed,extended release cetirizine 10 mg PO DAILY 02/11/20 07/17/20 cholecalciferol (vitamin D3) 3,000 unit PO DAILY 02/11/20 07/17/20 melatonin 5 mg PO HS PRN 02/11/20 07/17/20 simvastatin [Zocor] 20 mg PO HS 02/11/20 07/17/20 sotalol 40 mg PO Q12H 02/11/20 07/17/20 Allergies Allergy/AdvReac Type Severity Reaction Status Date / Time alendronate sodium Allergy Mild Rash Verified 07/31/20 08:39 iodine Allergy Mild RASH Verified 07/31/20 08:39 celecoxib AdvReac Mild Nausea and Verified 07/31/20 08:39 Vomiting hydrocodone AdvReac Mild nausea & Verified 07/31/20 08:39 vomiting Review of Systems Review of Systems: All systems reviewed & are unremarkable except as noted in HPI and below Constitutional: Constitutional: Denies chills, Denies fever(s) and Denies weakness Eyes: Eyes: Reports no additional eye complaints Cardiovascular: Cardiovascular: Denies chest pain Respiratory: Respiratory: Denies dyspnea Gastrointestinal: Gastrointestinal: Reports abdominal pain, Denies bloating, Reports diarrhea, Reports nausea and Denies vomiting Genitourinary: Genitourinary: Denies hematuria, Denies nocturia and Denies dysuria Musculoskeletal: Musculoskeletal: Reports back pain Neurologic: Denies confusion, Denies numbness and Denies weakness Endocrine: Endocrine: Denies polydipsia [facility] Past Medical History Medical History Acute pancreatitis Anxiety Closed bimalleolar avulsion fracture of right ankle Common bile duct dilatation Current use of moth exterminator anticoagulation Rivaroxaban for stroke prophylaxis due to AFib. 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 Aguiar. She is on budesonide q. HS. Painful orthopaedic hardware Paroxysmal atrial fibrillation Wears glasses Surgical History Surgical History History of back surgery (2016) Vertebroplasty in 2016. History of bunionectomy History of cardiac pacemaker in situ History of cataract extraction History of cholecystectomy History of hysterectomy History of vertebroplasty (~2016) Family History Family History Mother Diabetes mellitus Father Cerebrovascular accident Family history of coronary artery disease Social History Social History Social History: The patient is to her 2nd of 27 years. They live in [place] but spent the last 15 years in [place], [place]. Her and her currently live in the [facility]. Her is 89 years old. She is originally from [facility]. She denies alcohol, tobacco, and drug abuse. She designates her Randall and her son-in-law Wing as her surrogate decision makers and she wishes to be a full code. Smoking packs per day: 0.25 Smoking cigarettes per day: 5.0 Years sm
--- NOTE | 2020-07-31 07:43 | PC.NURSE ---
Pt to CT at this time, alert and awake on stretcher.
[2020-07-31] MEDS: SODIUM CHLORIDE 0.9% IV 1,000 ML 999 ML IV CONT (08:15)
[2020-07-31] MEDS: ONDANSETRON INJ 4 MG/2 ML VIAL IV PUSH (08:15)
[2020-07-31 08:31] VITALS: BP 136/59; PULSE 73; RESP 16; O2SAT 95
[2020-07-31 08:40] LABS: Basophils Percent Auto 0.2 % (0.2-1.2); Eosinophils Absolute Auto 0.1 K/mm3 (0-0.3); Eosinophils Percent Auto 0.5 % (0-4.4); Hemoglobin 9.4 g/dL (12.0-15.0); Immature Granulocyte Absolute 0.03 K/mm3 (0.00-0.031); Immature Granulocyte Percent A 0.3 % (0-0.5); Lymphocytes Absolute Auto 1.06 K/mm3 (0.9-3.2); Lymphocytes Percent Auto 10.2 % (18.3-44.2); Mean Corpuscular HGB Conc 30.3 g/dl (32-36); Mean Corpuscular Hemoglobin 24.9 pg (26-34); Mean Corpuscular Volume 82.2 fl (80-100); Mean Platelet Volume 8.9 fl (7.4-10.4); Monocytes Absolute Auto 0.9 K/mm3 (0.1-0.6); Monocytes Percent Auto 8.2 % (2.6-8.5); Neutrophils Absolute Auto 8.4 K/mm3 (1.3-6.7); Neutrophils Percent Auto 80.6 % (45.5-73.1); Platelet Count Result 224 k/mm3 (150-375); Red Blood Count 3.77 M/mm3 (4.2-5.4); Red Cell Distribution Width 19.1 % (11.5-14.5); White Blood Count 10.4 K/mm3 (4.5-10.0)
[2020-07-31 08:42] LABS: Add Urine Microscopic? NO; Appearance Urine Clear (Clear); Bilirubin Urine Negative (Negative); Blood Urine Negative (Negative); Color Urine Yellow (Yellow); Glucose Urine UA Negative (Negative); Ketones Urine Negative (Negative); Leukocyte Esterase Ur Negative LEU/UL (Negative); Nitrate Urine Negative (Negative); Protein Urine Negative (Negative); Specific Grav Ur 1.018 (1.001-1.035); Urobilinogen Urine Negative mg/dL (<2.0)
[2020-07-31 08:48] LABS: Lactic Acid Reflex 0.8 mmol/L (0.7-2.1)
[2020-07-31 08:49] LABS: Alanine Aminotransferase 14 U/L (4-35); Albumin Level 3.4 g/dL (3.5-5.1); Alkaline Phosphatase 194 U/L (38-126); Anion Gap 6 mmol/L (8-16); Aspartate Amino Transferase 24 U/L (14-36); Bilirubin,Total 0.4 mg/dL (0.2-1.3); Blood Urea Nitrogen 12 mg/dL (7-17); Carbon Dioxide 24 mmol/L (22-30); Chloride 107 mmol/L (98-107); Estimated CRCL calculation 49 ml/min; Estimated Glomerular Filt Rate > 60; Glucose 115 mg/dL (65-105); Lipase 23 U/L (23-300); Potassium 3.6 mmol/L (3.4-5.0); Sodium 137 mmol/L (137-145)
[2020-07-31 08:50] LABS: INR 1.7
[2020-07-31 08:51] LABS: Partial Thromboplastin Time 34.5 SECONDS (22.3-36.8)
[2020-07-31] MEDS: METOCLOPRAMIDE HCL INJ 10 MG/2 ML VIAL IV PUSH (09:00)
[2020-07-31 09:49] VITALS: BP 108/62; PULSE 70; RESP 18; O2SAT 97
[2020-07-31 10:13] VITALS: BP 118/62; PULSE 75; RESP 18; O2SAT 95
== END 2020-07-31 10:13 | disposition home or self-care (01) ==
PROVIDERS: Emergency Provider Emergency Medicine; PCP Family Medicine
DX: K57.32 Diverticulitis of large intestine without perforation or abscess without bleeding (principal); K21.9 Gastro-esophageal reflux disease without esophagitis; E78.5 Hyperlipidemia, unspecified; I10 Essential (primary) hypertension; E03.9 Hypothyroidism, unspecified; I48.0 Paroxysmal atrial fibrillation; F41.9 Anxiety disorder, unspecified; G89.29 Other chronic pain; M54.9 Dorsalgia, unspecified; Z89.422 Acquired absence of other left toe(s); Z95.0 Presence of cardiac pacemaker; Z98.49 Cataract extraction status, unspecified eye; Z79.01 Long term (current) use of anticoagulants
CPT/HCPCS: 36415; 51701; 74176; 80053; 81003; 83605; 83690; 85025; 85610; 85730; 96361; 96374; 96375; 99284; J2405; J2543; J2765; J7030

== ENCOUNTER → 2021-03-11 10:20 | Outpatient (CLI) | payer MEDICARE, OTHER, SELFPAY ==
--- NOTE | ~2021-03-11 | XR_ITS ---
EXAMINATION: XR chest 2V DATE: 03/11/2021 10:33 INDICATION: Cough, unspecified. TECHNIQUE: Frontal and lateral views of the chest were obtained. COMPARISON: Chest single view 02/12/2020 FINDINGS: There is mild scarring at the lung apices. No pleural effusion or pneumothorax. The heart s ize is normal. There is a left chest wall pacer with leads in the right atrium and right ventricle. T here are changes of vertebroplasty in lumbar spine. Surgical clips in the right upper quadrant are linda neil from cholecystectomy. IMPRESSION: 1. Mild scarring at the lung apices. Reviewed, dictated and finalized at location A. ATE DUTY NURSE
== END ==
PROVIDERS: PCP Family Medicine; Visit Provider Family Medicine
DX: R05.9 Cough, unspecified (principal); J98.4 Other disorders of lung
CPT/HCPCS: 71046

== ENCOUNTER 2021-08-11 00:14 | Emergency (ER) | payer MEDICARE, OTHER, SELFPAY ==
--- NOTE | ~2021-08-11 | XR_ITS ---
EXAMINATION: XR chest 1V portable DATE: 08/11/2021 03:05 INDICATION: Cough TECHNIQUE: frontal view of the chest was obtained. COMPARISON: Chest radiograph dated 03/11/2021 FINDINGS: Chronic mild biapical pleural-parenchymal scarring. No other airspace opacities, pulmonary edema, ple ural effusion or pneumothorax. The cardiomediastinal silhouette is normal. Dual lead pacemaker seen w ith leads projecting over the expected locations of the right atrium and right ventricle. Cholecystec tania clips the right upper quadrant. L1 vertebroplasty. IMPRESSION: 1. No acute cardiopulmonary disease. Reviewed, dictated and finalized at location A.
[2021-08-11 00:13] VITALS: BP 175/79; PULSE 68; RESP 16; TEMP 37.2; O2SAT 96
[2021-08-11 00:38] VITALS: BP 175/76; PULSE 70; RESP 16; O2SAT 96
--- NOTE | 2021-08-11 02:01 | ECG_ITS ---
Measurements Intervals [place] Rate: 69 P: 55 CT: 221 QRS: -28 QRSD: 143 T: 118 QT: 449 QTc: 484 Interpretive Statements ELECTRONIC ATRIAL PACEMAKER LEFT BUNDLE BRANCH BLOCK BASELINE ARTIFACT- I, II, III, AVR, AVL, AVF, V1 ABNORMAL ECG Electronically Signed On 08-11-2021 6:41:53 CDT by Hasmukh Zavaleta D.O.
--- NOTE | 2021-08-11 02:16 | ED.FALL ---
HPI - Fall General Chief Complaint: Fall Stated Complaint: GLF -SLID OUT OF BED ONTO KNEES, LOW BACK PAIN Time Seen by Provider: 08/11/21 01:03 Source: patient Mode of arrival: EMS Limitations: no limitations History of Present Illness HPI Narrative: This is an 86 year old female who presents via EMS for evaluation of fall. Her son is at bedside to assist in history. Patient states she was putting on her pajamas when she slid out of bed onto the floor. She states she fell onto her bottom and lower back. She initially was complaining of lower back pain but her pain has now resolved. She denies hitting her head or LOC. She reports she was able to crawl into another room to get . She was unable to get up without assistance. Her son states patient told him today she did not feel and she was weak. He also states patient did not have an appetite today. Patient reports have mild congestion and cough for past 2 days. She denies headache, nausea, vomiting, chest pain, sob, abdominal pain, numbness tingling. She denies hip pain or knee pain. Related Data Home Medications Medication Instructions Recorded Confirmed cholecalciferol (vitamin D3) 3,000 unit PO DAILY 02/11/20 06/29/21 melatonin 5 mg PO HS PRN 02/11/20 06/29/21 Allergies Allergy/AdvReac Type Severity Reaction Status Date / Time alendronate sodium Allergy Mild Rash Verified 06/29/21 13:54 iodine Allergy Mild RASH Verified 06/29/21 13:54 celecoxib AdvReac Mild Nausea and Verified 06/29/21 13:54 Vomiting hydrocodone AdvReac Mild nausea & Verified 06/29/21 13:54 vomiting Review of Systems Review of Systems: All systems reviewed & are unremarkable except as noted in HPI and below Constitutional: Constitutional: Reports weakness ENT: Denies dysphagia, Denies epistaxis and Denies sore throat Cardiovascular: Cardiovascular: Denies chest pain Respiratory: Respiratory: Denies cough and Denies dyspnea Gastrointestinal: Gastrointestinal: Denies abdominal pain, Denies diarrhea, Denies nausea and Denies vomiting PMFSH Past Medical History Medical History Acute pancreatitis Anxiety Closed bimalleolar avulsion fracture of right ankle Common bile duct dilatation Current use of senior living anticoagulation Rivaroxaban for stroke prophylaxis due to AFib. 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 Aguiar. She is on budesonide q. HS. Painful orthopaedic hardware Paroxysmal atrial fibrillation Traumatic arthritis of right ankle Wears glasses Surgical History Surgical History History of back surgery (2016) Vertebroplasty in 2016. History of bunionectomy History of cardiac pacemaker in situ History of cataract extraction History of cholecystectomy History of hysterectomy History of vertebroplasty (~2016) Family History Family History Mother Diabetes mellitus Father Cerebrovascular accident Family history of coronary artery disease Social History Social History (Updated 06/29/21 @ 13:53 by TR Leon) Social History: The patient is to her 2nd of 27 years. They live in [place] but spent the last 15 years in [place], [place]. Her and her currently live in the [facility]. Her is 95 years old. She is originally from [facility]. She denies alcohol, tobacco, and drug abuse. She designates her Randall and her son-in-law Wing as her surrogate decision makers and she wishes to be a full code. Second hand tobacco smoke exposure: No Additional smoking assessment comments: pt states that
[2021-08-11] MEDS: LACTATED RINGERS 1,000 ML 999 ML IV CONT (02:30)
[2021-08-11 02:33] LABS: Basophils Percent Auto 0.4 % (0.2-1.2); Eosinophils Absolute Auto 0.1 K/mm3 (0-0.3); Eosinophils Percent Auto 2.7 % (0-4.4); Hematocrit 36.8 % (37.0-47.0); Immature Granulocyte Absolute 0.02 K/mm3 (0.00-0.031); Immature Granulocyte Percent A 0.4 % (0-0.5); Lymphocytes Absolute Auto 0.89 K/mm3 (0.9-3.2); Lymphocytes Percent Auto 18.2 % (18.3-44.2); Mean Corpuscular HGB Conc 32.6 g/dl (32-36); Mean Corpuscular Hemoglobin 29.7 pg (26-34); Mean Corpuscular Volume 91.1 fl (80-100); Mean Platelet Volume 10.2 fl (7.4-10.4); Monocytes Absolute Auto 0.6 K/mm3 (0.1-0.6); Monocytes Percent Auto 11.9 % (2.6-8.5); Neutrophils Absolute Auto 3.2 K/mm3 (1.3-6.7); Neutrophils Percent Auto 66.4 % (45.5-73.1); Platelet Count Result 156 k/mm3 (150-375); Red Blood Count 4.04 M/mm3 (4.2-5.4); Red Cell Distribution Width 20.4 % (11.5-14.5); White Blood Count 4.9 K/mm3 (4.5-10.0)
[2021-08-11 02:46] LABS: Magnesium 1.8 mg/dL (1.6-2.3)
[2021-08-11 02:52] LABS: Alanine Aminotransferase 52 U/L (6-35); Alkaline Phosphatase 51 U/L (38-126); Anion Gap 4 mmol/L (8-16); Aspartate Amino Transferase 64 U/L (14-36); Bilirubin,Total 0.3 mg/dL (0.2-1.3); Blood Urea Nitrogen 12 mg/dL (7-17); Calcium 9.1 mg/dL (8.4-10.2); Carbon Dioxide 26 mmol/L (22-30); Chloride 106 mmol/L (98-107); Estimated CRCL calculation 42 ml/min; Estimated Glomerular Filt Rate > 60; Glucose 102 mg/dL (65-110); Sodium 136 mmol/L (137-145)
[2021-08-11 03:21] LABS: Appearance Urine Clear (Clear); Bilirubin Urine Negative (Negative); Blood Urine 1+ (Negative); Color Urine Yellow (Yellow); Glucose Urine UA Negative (Negative); Ketones Urine Negative (Negative); Leukocyte Esterase Ur Negative LEU/UL (Negative); Nitrate Urine Negative (Negative); Protein Urine Negative (Negative); Urobilinogen Urine 0.2 mg/dL (<2.0); pH Urine 5.5 (5.0-9.0)
[2021-08-11 03:24] LABS: Bacteria Urine Trace /hpf; Mucus Urine Rare /lpf; WBC Urine 0-3 /hpf
[2021-08-11 03:28] LABS: Add Urine Microscopic? YES
[2021-08-11 03:54] LABS: SARS-CoV-2 RNA PCR Positive
[2021-08-11 05:16] VITALS: BP 159/76; PULSE 75; RESP 18; O2SAT 95
== END 2021-08-11 05:13 ==
PROVIDERS: Emergency Provider General Practice; PCP Family Medicine
DX: U07.1 COVID-19 (principal); I10 Essential (primary) hypertension; E03.9 Hypothyroidism, unspecified; I48.0 Paroxysmal atrial fibrillation; Z79.01 Long term (current) use of anticoagulants; W06.XXXA Fall from bed, initial encounter
CPT/HCPCS: 36415; 51701; 71045; 80053; 81001; 83735; 85025; 93005; 96360; 99283; C9803; J7120; U0003; U0005

== ENCOUNTER 2021-11-06 08:52 | Outpatient (CLI) | payer MEDICARE, OTHER, SELFPAY ==
[2021-11-06 18:43] LABS: Alanine Aminotransferase 59 U/L (6-35); Albumin Level 4.2 g/dL (3.5-5.1); Alkaline Phosphatase 52 U/L (38-126); Anion Gap 11 mmol/L (8-16); Aspartate Amino Transferase 71 U/L (14-36); Bilirubin,Total 0.6 mg/dL (0.2-1.3); Blood Urea Nitrogen 16 mg/dL (7-17); Carbon Dioxide 26 mmol/L (22-30); Chloride 104 mmol/L (98-107); Cholesterol 99 mg/dL (0-200); Estimated Glomerular Filt Rate 59; Glucose 97 mg/dL (65-110); HDL Direct 36 mg/dL; Potassium 4.7 mmol/L (3.4-5.0); Sodium 141 mmol/L (137-145); Triglycerides 96 mg/dL (<150)
[2021-11-06 18:54] LABS: LDL Cholesterol Direct 40 mg/dL
[2021-11-06 19:32] LABS: Hemoglobin A1C 5.5 % (<5.7)
[2021-11-06 20:07] LABS: Free T4 Free Thyroxine 1.34 ng/mL (0.78-2.19)
== END 2021-11-06 08:53 | disposition home or self-care (01) ==
LOC: ANHGOSHLAB 08:54
PROVIDERS: PCP Family Medicine; Visit Provider Family Medicine
DX: E03.8 Other specified hypothyroidism (principal); E78.2 Mixed hyperlipidemia; I10 Essential (primary) hypertension; R73.03 Prediabetes
CPT/HCPCS: 36415; 80053; 80061; 83036; 84439; 84443

== ENCOUNTER 2022-03-12 19:43 | Outpatient (NON) | payer MEDICARE, OTHER, SELFPAY | END 2022-03-12 19:44 | disposition home or self-care (01) | LOC: ANHLAB 19:45 | PROVIDERS: PCP Family Medicine; Visit Provider Family Medicine | DX: R10.9 Unspecified abdominal pain (principal) | CPT/HCPCS: 87077; 87086; 87186 ==

== ENCOUNTER 2022-04-12 13:01 | Outpatient (CLI) | payer MEDICARE, OTHER, SELFPAY ==
[2022-04-12 14:09] LABS: Kit Draw Collected
== END 2022-04-12 13:02 | disposition home or self-care (01) ==
LOC: ANHGOSHLAB 13:03
PROVIDERS: PCP Family Medicine; Visit Provider Family Medicine
DX: Z51.81 Encounter for therapeutic drug level monitoring (principal); Z79.01 Long term (current) use of anticoagulants; T45.511A Poisoning by anticoagulants, accidental (unintentional), initial encounter
CPT/HCPCS: 36415

== ENCOUNTER 2022-05-21 12:33 | Outpatient (CLI) | payer MEDICARE, OTHER, SELFPAY ==
[2022-05-21 18:36] LABS: Appearance Urine Clear (Clear); Bilirubin Urine Negative (Negative); Blood Urine Negative (Negative); Color Urine Yellow (Yellow); Glucose Urine UA Negative (Negative); Ketones Urine Negative (Negative); Leukocyte Esterase Ur Negative LEU/UL (Negative); Nitrate Urine Negative (Negative); Protein Urine Negative (Negative); Specific Grav Ur 1.009 (1.001-1.035); Urobilinogen Urine 0.2 mg/dL (<2.0); pH Urine 5.5 (5.0-9.0)
[2022-05-21 18:56] LABS: Add Urine Microscopic? NO
== END 2022-05-21 12:34 | disposition home or self-care (01) ==
LOC: ANHGOSHLAB 12:35
PROVIDERS: PCP Family Medicine; Visit Provider Internal Medicine Cardiovascular Disease
DX: Z01.812 Encounter for preprocedural laboratory examination (principal)
CPT/HCPCS: 81003

== ENCOUNTER 2022-05-26 14:50 | Outpatient (CLI) | payer MEDICARE, OTHER, SELFPAY ==
[2022-05-26 15:28] LABS: Hematocrit 35.6 % (37.0-47.0); Hemoglobin 11.4 g/dL (12.0-15.0); Mean Corpuscular Hemoglobin 32.6 pg (26-34); Mean Corpuscular Volume 101.7 fl (80-100); Mean Platelet Volume 9.6 fl (7.4-10.4); Platelet Count Result 155 k/mm3 (150-375); Red Cell Distribution Width 13.4 % (11.5-14.5)
[2022-05-26 16:05] LABS: LDL Cholesterol Direct 46 mg/dL
[2022-05-26 16:12] LABS: Cholesterol 102 mg/dL (0-200); Triglycerides 176 mg/dL (<150)
[2022-05-26 16:21] LABS: Iron 69 ug/dL (37-170)
[2022-05-26 16:31] LABS: Percent Iron Saturation 18 % (20-50)
[2022-05-26 16:39] LABS: Free T4 Free Thyroxine 1.12 ng/mL (0.78-2.19)
[2022-05-26 17:03] LABS: Folic Acid 12.3 ng/mL (2.76->20)
[2022-05-26 20:42] LABS: HDL Direct 36 mg/dL
== END 2022-05-26 14:51 | disposition home or self-care (01) ==
PROVIDERS: PCP Family Medicine; Visit Provider Family Medicine
DX: D64.9 Anemia, unspecified (principal); E03.8 Other specified hypothyroidism; E78.2 Mixed hyperlipidemia; I10 Essential (primary) hypertension; R74.8 Abnormal levels of other serum enzymes
CPT/HCPCS: 36415; 80061; 82607; 82728; 82746; 83540; 83550; 84439; 84443; 85027

== ENCOUNTER 2022-11-17 09:27 | Outpatient (CLI) | payer MEDICARE, OTHER, SELFPAY ==
[2022-11-17 18:35] LABS: Basophils Percent Auto 0.6 % (0.2-1.2); Eosinophils Absolute Auto 0.2 K/mm3 (0-0.3); Eosinophils Percent Auto 3.6 % (0-4.4); Hematocrit 40.6 % (37.0-47.0); Hemoglobin 13.1 g/dL (12.0-15.0); Immature Granulocyte Absolute 0.01 K/mm3 (0.00-0.031); Immature Granulocyte Percent A 0.2 % (0-0.5); Lymphocytes Percent Auto 23.5 % (18.3-44.2); Mean Corpuscular HGB Conc 32.3 g/dl (32-36); Mean Corpuscular Hemoglobin 33.6 pg (26-34); Mean Corpuscular Volume 104.1 fl (80-100); Mean Platelet Volume 11.9 fl (7.4-10.4); Monocytes Absolute Auto 0.4 K/mm3 (0.1-0.6); Monocytes Percent Auto 7.9 % (2.6-8.5); Neutrophils Percent Auto 64.2 % (45.5-73.1); Platelet Count Result 123 k/mm3 (150-375); Red Cell Distribution Width 12.9 % (11.5-14.5); White Blood Count 4.7 K/mm3 (4.5-10.0)
== END 2022-11-17 09:28 | disposition home or self-care (01) ==
PROVIDERS: PCP Family Medicine; Visit Provider Family Medicine
DX: D64.9 Anemia, unspecified (principal)
CPT/HCPCS: 36415; 85025

== ENCOUNTER 2023-01-25 04:18 | Emergency (ER) | payer MEDICARE, OTHER, SELFPAY ==
--- NOTE | ~2023-01-25 | XR_ITS ---
EXAMINATION: XR chest 1V portable DATE: 01/25/2023 06:56 INDICATION: Nausea, vomiting, and chills. TECHNIQUE: A single frontal view of the chest was obtained. COMPARISON: Chest single view 08/11/2021, CT abdomen and pelvis 07/31/2020 FINDINGS: There is mild scarring at right lung apex. There is no pneumonia, pleural effusion, or pneu mothorax. The heart size is normal. There is a left chest wall pacer with leads in the right atrium a nd right ventricle. A device overlying the heart may be an implant or something outside the patient. IMPRESSION: 1. Mild scarring at right lung apex. Reviewed, dictated and finalized at location E.
--- NOTE | ~2023-01-25 | CT_ITS ---
EXAMINATION: CT abdomen pelvis wo con DATE: 01/25/2023 07:42 INDICATION: Generalized abdominal pain. Diarrhea. TECHNIQUE: Computed tomography (CT) of the abdomen and pelvis was performed without intravenous contr ast. Automated exposure control and iterative reconstruction technique were employed. The dose-length product was 315.25 mGy-cm. COMPARISON: CT abdomen and pelvis 07/31/2020 FINDINGS: The visualized portions of the lung bases demonstrate mild atelectasis and mild chronic radha g disease. No pleural effusion. The heart size is normal. There are pacer wires in right atrium and r ight ventricle. No pericardial effusion. A partially visualized device in the heart may be a closure device at left atrial appendage. The liver is normal. There is a chronic 4.3 cm cyst in the spleen wi th wall calcifications, likely an old hematoma or old infection. There is a chronic 1.5 cm cyst in th e spleen. The pancreas, adrenal glands, and kidneys are normal. There is calcified atherosclerosis of the aorta and many of the other arteries. There is diverticulosis of the colon without evidence of d iverticulitis. There is liquid stool in the colon correlating with the symptom of diarrhea. The appen veronica is not visualized. There are no pathologically enlarged lymph nodes. There is no free intraperito lacey fluid. There is a chronic burst fracture of L1 with changes of vertebroplasty. There are multipl e chronic compression fractures in the spine. There is severe lumbar spondylosis and moderate thoraci c spondylosis. IMPRESSION: 1. No etiology for the patient's symptoms. Reviewed, dictated and finalized at location E.
[2023-01-25 04:06] VITALS: BP 121/62; PULSE 66; RESP 14; TEMP 36.6; O2SAT 98
[2023-01-25 04:50] VITALS: BP 118/48; PULSE 60; RESP 17; O2SAT 95
--- NOTE | 2023-01-25 05:23 | ECG_ITS ---
Measurements Intervals [place] Rate: 60 P: 130 MS: 203 QRS: -7 QRSD: 144 T: 100 QT: 490 QTc: 490 Interpretive Statements ELECTRONIC ATRIAL PACEMAKER LEFT BUNDLE BRANCH BLOCK [120+ ms QRS DURATION, 80+ ms Q/S IN V1/V2, 85+ ms R IN I/aVL/V5/V6] COMPARED TO ECG 08/11/2021 02:49:36 NO SIGNIFICANT CHANGES Electronically Signed On 01-25-2023 11:41:40 CDT by Elliot Castellanos M.D.
[2023-01-25 06:12] LABS: Basophils Percent Auto 0.4 % (0.2-1.2); Eosinophils Absolute Auto 0.2 K/mm3 (0-0.3); Eosinophils Percent Auto 2.5 % (0-4.4); Immature Granulocyte Absolute 0.04 K/mm3 (0.00-0.031); Immature Granulocyte Percent A 0.5 % (0-0.5); Lymphocytes Absolute Auto 0.54 K/mm3 (0.9-3.2); Lymphocytes Percent Auto 6.8 % (18.3-44.2); Mean Corpuscular HGB Conc 32.6 g/dl (32-36); Mean Corpuscular Volume 101.4 fl (80-100); Mean Platelet Volume 9.6 fl (7.4-10.4); Monocytes Absolute Auto 0.5 K/mm3 (0.1-0.6); Monocytes Percent Auto 6.8 % (2.6-8.5); Neutrophils Absolute Auto 6.6 K/mm3 (1.3-6.7); Platelet Count Result 153 k/mm3 (150-375); Red Blood Count 4.24 M/mm3 (4.2-5.4); Red Cell Distribution Width 13.1 % (11.5-14.5)
[2023-01-25 06:21] LABS: Alanine Aminotransferase 39 U/L (6-35); Albumin Level 4.8 g/dL (3.5-5.1); Alkaline Phosphatase 55 U/L (38-126); Anion Gap 6 mmol/L (8-16); Aspartate Amino Transferase 52 U/L (14-36); Bilirubin,Total 0.8 mg/dL (0.2-1.3); Blood Urea Nitrogen 14 mg/dL (7-17); Calcium 10.6 mg/dL (8.4-10.2); Carbon Dioxide 27 mmol/L (22-30); Chloride 107 mmol/L (98-107); Estimated CRCL calculation 35 ml/min; Estimated Glomerular Filt Rate 59; Glucose 128 mg/dL (65-110); Lipase 521 U/L (23-300); Magnesium 2.1 mg/dL (1.6-2.3); Potassium 3.8 mmol/L (3.4-5.0); Sodium 140 mmol/L (137-145)
[2023-01-25 06:28] VITALS: BP 121/62; PULSE 61; RESP 17; O2SAT 97
[2023-01-25] MEDS: SODIUM CHLORIDE 0.9% IV 1,000 ML 999 ML IV CONT (06:28)
[2023-01-25] MEDS: ONDANSETRON INJ 4 MG/2 ML VIAL IV PUSH (06:28)
--- NOTE | 2023-01-25 06:31 | ED.GENADULT ---
HPI - General Adult General Chief complaint: Nausea/Vomiting/Diarrhea <Davi Light MD - Last Filed: 01/25/23 06:53> Stated complaint: vomiting/diarrhea <Davi Light MD - Last Filed: 01/25/23 06:53> Time Seen by Provider: 01/25/23 04:50 <Davi Light MD - Last Filed: 01/25/23 06:53> History of Present Illness HPI narrative: This is a an 87-year-old female presenting in the ED for nausea/vomiting and profuse diarrhea x1 day. Patient is currently complaining of chills and some nausea. She denies fevers chest pain difficulty breathing abdominal pain or urinary symptoms. patient does not know she has been on recent antibiotics. Does not know if she has history of C diff. she denies travel history. <Davi Light MD - Last Filed: 01/25/23 06:53> Related Data Home medications: Home Medications Medication Instructions Recorded Confirmed cholecalciferol (vitamin D3) 25 3,000 unit PO DAILY 02/11/20 11/22/22 mcg (1,000 unit) tablet melatonin 5 mg tablet 5 mg PO HS PRN Insomnia 02/11/20 11/22/22 Lactobacills gasseri-Bifidobac cap PO 07/15/22 11/22/22 bifidum,longum 1.5 billion cell capsule aspirin 81 mg tablet,delayed 81 mg PO DAILY 07/15/22 11/22/22 release clopidogrel 75 mg tablet 75 mg PO DAILY 07/15/22 11/22/22 rosuvastatin 20 mg tablet 20 mg PO DAILY 07/15/22 11/22/22 <Davi Light MD - Last Filed: 01/25/23 06:53> Allergies/adverse reactions: Allergies Allergy/AdvReac Type Severity Reaction Status Date / Time alendronate sodium Allergy Mild Rash Verified 01/25/23 04:19 iodine Allergy Mild RASH Verified 01/25/23 04:19 celecoxib AdvReac Mild Nausea and Verified 01/25/23 04:19 Vomiting hydrocodone AdvReac Mild nausea & Verified 01/25/23 04:19 vomiting <Davi Light MD - Last Filed: 01/25/23 06:53> PMFSH Past Medical History Medical History: Medical History Acute pancreatitis Anxiety Closed bimalleolar avulsion fracture of right ankle Common bile duct dilatation Current use of ad terminal makeup operator anticoagulation Rivaroxaban for stroke prophylaxis due to AFib. 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 Aguiar. She is on budesonide q. HS. Painful orthopaedic hardware Paroxysmal atrial fibrillation Traumatic arthritis of right ankle Wears glasses <Davi Light MD - Last Filed: 01/25/23 06:53> Surgical History Surgical History: Surgical History History of back surgery (2016) Vertebroplasty in 2016. History of bunionectomy History of cardiac pacemaker in situ History of cataract extraction History of cholecystectomy History of hysterectomy History of vertebroplasty (~2015) <Davi Light MD - Last Filed: 01/25/23 06:53> Family History Family History: Family History Mother Diabetes mellitus Father Cerebrovascular accident Family history of coronary artery disease <Davi Light MD - Last Filed: 01/25/23 06:53> Social History Social History: Social History Social History: The patient is to her 2nd of 27 years. They live in [place] but spent the last 15 years in [place], [place]. Her and her currently live in the [facility]. Her is 89 years old. She is originally from [facility]. She denies alcohol, tobacco, and drug abuse. She designates her Randall and her son-in-law Wing as her surrogate decision makers and she wishes to be a full code. Smoking status: Unknown if ever smoked Second hand tobacco smoke
[2023-01-25 06:47] LABS: Influenza A QL RT-PCR Negative (Negative); Influenza B QL RT-PCR Negative (Negative); RSV RNA, RT-PCR Negative (Negative); SARS-CoV-2 RNA PCR Negative (Negative)
--- NOTE | 2023-01-25 07:10 | PC.NURSE ---
Report given to ASHLEY Solis at this time.
[2023-01-25 07:39] LABS: Appearance Urine Clear (Clear); Bilirubin Urine Negative (Negative); Blood Urine Negative (Negative); Color Urine Yellow (Yellow); Glucose Urine UA Negative (Negative); Ketones Urine Negative (Negative); Leukocyte Esterase Ur Negative LEU/UL (Negative); Nitrate Urine Negative (Negative); Protein Urine Negative (Negative); Specific Grav Ur 1.013 (1.001-1.035); Urobilinogen Urine 0.2 mg/dL (<2.0)
[2023-01-25 07:50] LABS: Add Urine Microscopic? NO
--- NOTE | 2023-01-25 09:11 | PC.NURSE ---
Pt tolerated 240 ml of water. no diarrhea or emesis at this time.
[2023-01-25 09:14] VITALS: BP 154/66; PULSE 60; RESP 18; TEMP 36.7; O2SAT 96
== END 2023-01-25 09:20 ==
PROVIDERS: Emergency Provider Emergency Medicine; PCP Family Medicine
DX: K52.9 Noninfective gastroenteritis and colitis, unspecified (principal); Z20.822 Contact with and (suspected) exposure to COVID-19; I48.0 Paroxysmal atrial fibrillation; E78.5 Hyperlipidemia, unspecified; E03.9 Hypothyroidism, unspecified; K21.9 Gastro-esophageal reflux disease without esophagitis; Z95.0 Presence of cardiac pacemaker; Z87.442 Personal history of urinary calculi; Z98.49 Cataract extraction status, unspecified eye; Z90.49 Acquired absence of other specified parts of digestive tract; Z90.710 Acquired absence of both cervix and uterus; Z89.422 Acquired absence of other left toe(s); Z79.82 Long term (current) use of aspirin; I44.7 Left bundle-branch block, unspecified
CPT/HCPCS: 36415; 71045; 74176; 80053; 81003; 83690; 83735; 85025; 87637; 93005; 96361; 96374; 99284; J2405; J7030

== ENCOUNTER 2023-06-24 09:30 | Emergency (ER) | payer MEDICARE, OTHER, SELFPAY ==
--- NOTE | ~2023-06-24 | XR_ITS ---
EXAMINATION: [id number] DATE: 06/24/2023 11:31 INDICATION: Right rib pain. Fall. TECHNIQUE: A frontal view of the chest and 2 views on 3 radiographs of the right ribs were obtained. COMPARISON: Chest single view 01/25/2023 FINDINGS: There is mild scarring at the lung apices. There is mild atelectasis in left lower lung zon e. No pleural effusion or pneumothorax. The heart size is normal. There is a closure device in the le ft atrial appendage. There is a left chest wall pacer with leads in the right atrium and right ventri marzena. IMPRESSION: 1. No rib fracture. Reviewed, dictated and finalized at location A. IMPRESSION: 1. No rib fracture.
--- NOTE | ~2023-06-24 | CT_ITS ---
EXAMINATION: CT thoracic lumbar wo con DATE: 06/24/2023 11:39 INDICATION: Back pain after fall TECHNIQUE: Computed tomography (CT) of the thoracic and lumbar spine was performed without intravenou s contrast. The dose-length product (DLP) was 709.48 mGy-cm. Iterative reconstruction was used. COMPARISON: None FINDINGS: Thoracic Spine: Bone alignment is normal. There is no fracture. The vertebral body heights are mainta ined. There is moderate loss of intervertebral disc space height at multiple levels in the thoracic s pine. There is severe loss of disc space height at T11-12. Lumbar Spine: There is chronic vertebroplasty change at L1. There is severe loss of intervertebral di sc space height throughout the lumbar spine. No acute lumbar fracture is identified. There is multile joey severe facet joint osteoarthritis. IMPRESSION: 1. Moderate to severe thoracic spondylosis without acute findings. 2. Severe lumbar spondylosis and vertebroplasty change at L1 without acute findings. Reviewed, dictated and finalized at location A. IMPRESSION: 1. Moderate to severe thoracic spondylosis without acute findings. 2. Severe lumbar spondylosis and vertebroplasty change at L1 without acute find ings.
--- NOTE | ~2023-06-24 | CT_ITS ---
EXAMINATION: CT brain wo con INDICATION: Headache COMPARISON: 08/05/2016 TECHNIQUE: Standard unenhanced head CT. The dose-length product (DLP) was 605.33 mGy-cm. The mA was a djusted according to patient size. Iterative reconstruction technique was employed. FINDINGS: No acute intraparenchymal hemorrhage. No evidence of mass lesion. No evidence of acute infa rction. There is moderate periventricular and subcortical hypodensity probably related to small vesse l ischemic disease. There is mild prominence of the sulci and ventricles related to cerebral atrophy. Intracranial calcified cerebral atherosclerosis is noted. No extra-axial collections. No mass effect or midline shift. Changes in the globes are likely from ocular lens surgery. The visualized sinuses and mastoid air cells are well aerated. IMPRESSION: 1. No acute intracranial abnormality. 2. Age related findings. Reviewed, dictated and finalized at location A.
--- NOTE | ~2023-06-24 | CT_ITS ---
EXAMINATION: CT cervical spine wo con DATE: 06/24/2023 11:14 INDICATION: Neck pain after fall TECHNIQUE: Computed tomography (CT) of the cervical spine was performed without intravenous contrast. The dose-length product (DLP) was 184.99 mGy-cm. Automated exposure control and iterative reconstruc tion technique were employed. COMPARISON: 08/05/2016 FINDINGS: There are 2 mm of chronic anterolisthesis of C6 on C7 and C7 on T1. The vertebral body heig hts are maintained. There is severe loss of intervertebral disc space height throughout the cervical spine. The odontoid process is intact. There is multilevel severe facet and uncovertebral joint osteo arthritis. IMPRESSION: 1. Severe cervical spondylosis without acute findings or significant interval change. Reviewed, dictated and finalized at location A. IMPRESSION: 1. Severe cervical spondylosis without acute findings or significant interval domonique pizarro
[2023-06-24 09:32] VITALS: BP 147/67; PULSE 60; RESP 16; TEMP 36.5; O2SAT 100
--- NOTE | 2023-06-24 11:11 | ED.BACK ---
HPI - Back Pain/Injury General Chief Complaint: Back Pain/Injury Stated Complaint: Back pain Time Seen by Provider: 06/24/23 10:26 Source: patient Mode of arrival: EMS Limitations: dementia History of Present Illness HPI Narrative: This is a 88-year-old female that presents to the emergency department after a fall today with back pain. Reports she tripped over her bed skirt and fell. She is unsure how she landed. She does not believe she hit her head. She did not lose consciousness. Reports since she has had neck and back pain. Also reports right-sided rib pain. Denies vision changes, vomiting, numbness, weakness. Related Data Home Medications Medication Instructions Recorded Confirmed cholecalciferol (vitamin D3) 25 3,000 unit PO DAILY 02/11/20 11/22/22 mcg (1,000 unit) tablet melatonin 5 mg tablet 5 mg PO HS PRN Insomnia 02/11/20 11/22/22 Lactobacills gasseri-Bifidobac cap PO 07/15/22 11/22/22 bifidum,longum 1.5 billion cell capsule aspirin 81 mg tablet,delayed 81 mg PO DAILY 07/15/22 11/22/22 release Allergies Allergy/AdvReac Type Severity Reaction Status Date / Time alendronate sodium Allergy Mild Rash Verified 01/25/23 04:19 iodine Allergy Mild RASH Verified 01/25/23 04:19 celecoxib AdvReac Mild Nausea and Verified 01/25/23 04:19 Vomiting hydrocodone AdvReac Mild nausea & Verified 01/25/23 04:19 vomiting Review of Systems Review of Systems: CONSTITUTIONAL: Denies fever EYES: Denies visual changes RESPIRATORY: Denies dyspnea. GASTROINTESTINAL: Denies vomiting MUSCULOSKELETAL: Reports back pain, joint pain, and myalgia. NEUROLOGIC: Denies numbness, or weakness. All systems reviewed & are unremarkable except as noted in HPI and below PMFSH Past Medical History Medical History Acute pancreatitis Anxiety Closed bimalleolar avulsion fracture of right ankle Common bile duct dilatation Current use of terminal operator anticoagulation Rivaroxaban for stroke prophylaxis due to AFib. 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 Aguiar. She is on budesonide q. HS. Painful orthopaedic hardware Paroxysmal atrial fibrillation Traumatic arthritis of right ankle Wears glasses Surgical History Surgical History History of back surgery (2016) Vertebroplasty in 2016. History of bunionectomy History of cardiac pacemaker in situ History of cataract extraction History of cholecystectomy History of hysterectomy History of vertebroplasty (~2016) Family History Family History Mother Diabetes mellitus Father Cerebrovascular accident Family history of coronary artery disease Social History Social History Social History: The patient is to her 2nd of 27 years. They live in [place] but spent the last 15 years in [place], [place]. Her and her currently live in the [facility]. Her is 89 years old. She is originally from [facility]. She denies alcohol, tobacco, and drug abuse. She designates her Randall and her son-in-law Wing as her surrogate decision makers and she wishes to be a full code. Smoking status: Unknown if ever smoked Second hand tobacco smoke exposure: No Additional smoking assessment comments: pt states that she never inhaled Alcohol intake: never Alcohol use details: 1-2 per month Substance use: never Substance use type: does not use Lack of Transportation: No Lack of Food: Never True Current Housing: I Have Housing Concerned About Future Housing: No Difficulty Payi
[2023-06-24 12:14] VITALS: BP 181/73; PULSE 60; RESP 14; O2SAT 99
[2023-06-24] MEDS: ACETAMINOPHEN 500 MG TABLET 1000 MG PO (12:17)
--- NOTE | 2023-06-24 13:09 | PC.NURSE ---
ASHLEY Terry at [facility] called for update on patient
[2023-06-24 13:39] VITALS: BP 165/75; PULSE 60; RESP 16; O2SAT 98
--- NOTE | 2023-06-24 13:48 | PC.NURSE ---
Wing Bray, pt POA, called for update on patient. States he can pick her up upon d/c, can be reached [phone].
[2023-06-24 14:54] VITALS: BP 163/70; PULSE 60; RESP 18; O2SAT 97
--- NOTE | 2023-06-24 14:54 | PC.NURSE ---
Nikia Seaman called for report back to facility. Wing, son in law, called for transportation.
== END 2023-06-24 14:55 ==
PROVIDERS: Emergency Provider Physician Assistant; PCP Family Medicine
DX: S19.9XXA Unspecified injury of neck, initial encounter (principal); S29.9XXA Unspecified injury of thorax, initial encounter; I48.0 Paroxysmal atrial fibrillation; I10 Essential (primary) hypertension; E78.5 Hyperlipidemia, unspecified; K21.9 Gastro-esophageal reflux disease without esophagitis; E03.9 Hypothyroidism, unspecified; K52.832 Lymphocytic colitis; Z95.0 Presence of cardiac pacemaker; Z98.49 Cataract extraction status, unspecified eye; Z90.49 Acquired absence of other specified parts of digestive tract; Z90.710 Acquired absence of both cervix and uterus; Z79.82 Long term (current) use of aspirin; M47.812 Spondylosis without myelopathy or radiculopathy, cervical region; M47.816 Spondylosis without myelopathy or radiculopathy, lumbar region; F41.9 Anxiety disorder, unspecified; M47.814 Spondylosis without myelopathy or radiculopathy, thoracic region; W18.09XA Striking against other object with subsequent fall, initial encounter
CPT/HCPCS: 70450; 71101; 72125; 72128; 72131; 99284; A9270